=== PATIENT | female | born 1935 | race African-American/Black ===

== ENCOUNTER 2017-05-11 22:05 | Inpatient (IN) | payer MEDICARE, OTHER ==
[~2017-05-11] VITALS: Ht 154.9 cm; Wt 74.8 kg
[2017-05-11 22:04] VITALS: BP 145/57
[2017-05-11] MEDS ORDERED: ADALAT10 MG ORAL (22:09)
[2017-05-11] MEDS ORDERED: ALBUTEROL2.5 MG/3 M INH (22:09)
[2017-05-11] MEDS ORDERED: Albuterol/Ipratropium 3ml neb HHN ONE (22:15)
[2017-05-11] MEDS ORDERED: Solu-MEDROL 125mg Inj IVP ONE (22:15)
--- NOTE | 2017-05-11 22:25 | Emergency Room Report ---
History of Present Illness General Chief Complaint: Dyspnea/Respdistress Source: Patient Present Illness HPI This is an 81-year-old female with history of asthma high blood pressure. She presents with chief complaint of asthma exacerbation shortness. She said his been acting up for the last 2 weeks but worse today. Had fever at home. She went to [facility] this afternoon it was seen and treated there. She received reading treatment and influenza swab. Influenza was negative. She got better and was discharged home. She got home symptom exacerbated again. Her inhaler is not helping. Coughing is nonproductive in nature. Worse with exertion. Worse with lying flat. Has chest tightness. EMS gave her 5 mg albuterol en route. Allergies: Coded Allergies: CODEINE (Verified Allergy, Unknown, 05/11/17) Patient History Past Medical History: see triage record, old chart reviewed, HTN, asthma Past Surgical History: other Pertinent Family History: none Social History: Denies: smoking, alcohol use, drug use Now: No Nursing Documentation-PMH Hx Hypertension: Yes Hx Asthma: Yes Review of Systems Eye: Denies: eye pain, blurred vision ENT: Denies: ear pain, nose congestion, throat swelling Respiratory: Reports: cough, shortness of breath, wheezing Cardiovascular: Denies: chest pain, palpitations Gastrointestinal: Denies: abdominal pain, diarrhea, nausea, vomiting Musculoskeletal: Denies: back pain, joint pain Skin: Denies: rash Neurological: Denies: headache, numbness Endocrine: Denies: increased thirst, increased urine Hematologic/Lymphatic: Denies: easy bruising All Other Systems: negative except mentioned in HPI Physical Exam Vital Signs Date Time Temp Pulse Resp B/P (MAP) Pulse Ox O2 Delivery O2 Flow Rate FiO2 05/11/17 21:57 99.9 124 24 136/68 97 Room Air vital low-grade fever Sp02 EP Interpretation: reviewed, normal General Appearance: well appearing, alert, mild distress Head: normocephalic, atraumatic Eyes: bilateral eye PERRL, bilateral eye EOMI ENT: hearing grossly normal, normal pharynx Neck: full range of motion, supple, no meningismus Respiratory: chest non-tender, respiratory distress - Mild, decreased breath sounds, accessory muscle use, wheezing Cardiovascular #1: regular rate, rhythm, no murmur Gastrointestinal: normal bowel sounds, non tender, no mass, no organomegaly, no bruit, non-distended Musculoskeletal: back normal, normal range of motion Neurologic: alert, oriented x3 Psychiatric: mood/affect normal Skin: warm/dry Medical Decision Making Diagnostic Impression: Primary Impression: Asthma exacerbation Qualified Codes: J45.901 - Unspecified asthma with (acute) exacerbation Additional Impression: Respiratory distress ER Course Patient presents with asthma exacerbation. She may have a viral pneumonia. CBC is normal with elevated monocyte count. She was at [facility] earlier today. Chest x-ray showed atelectasis there. Chest x-ray showed atelectasis here. Influenza was negative there. It is symptom worsen or not better, will admit for further treatment and monitoring. No e/o of ACS, PE, dissection to name a few. I discussed case with Dr. Dinh who is hospitalist for [facility]. He wanted pt to be admitted here. I discussed the case with Dr. Sheth who will admit for Dr. Walls. EKG Diagnostic Results Rate: tachycardiac Rhythm: NSR ST Segments: other - RBBB. NSST changes. Rhythm Strip Diag. Results Rhythm Strip Time: 22:24 EP Interpretation: yes Rate: 115 Rhythm: NSR, no PVC's Other Impression NSST changes. Chest X-Ray Diagnostic Results Chest X-Ray Diagnostic Results : Chest X-Ray Ordered: Yes # of Views/Limited/Complete: 1 View Indication: Shortness of Breath EP Interpretation: Yes Interpretation: no effusion, no pneumothorax, other - CM with atelectasis Impression: Other - CM with atelectasis Electronically Signed by: Josef Schroeder MD Last Vital Signs Date Time Temp Pulse Resp B/P (MAP) Pulse Ox O2 Delivery O2 Flow Rate FiO2 05/11/17 22:04 99.9 123 30 145/57 96 Room Air Status: improved Disposition: ADMITTED INPATIENT Condition: Serious JOSEF SCHROEDER M.D. May 11, 2017 22:25
[2017-05-11] MEDS ORDERED: Acetaminophen 500mg (ES) tab ORAL ONE (22:45)
[2017-05-11 22:59] LABS: BASOPHILS % (AUTO) 1.3 % (0.0-2.0); LYMPHOCYTES % (AUTO) 15.6 % (20.0-45.0); MEAN CORPUSCULAR HGB CONC 31.7 G/DL (32.0-36.0); MEAN CORPUSCULAR VOLUME 88 FL (80-99); MEAN PLATELET VOLUME 11.5 FL (6.5-10.1); MONOCYTES % (AUTO) 13.3 % (1.0-10.0); NEUTROPHILS % (AUTO) 69.7 % (45.0-75.0); PLATELET COUNT 189 K/UL (150-450); RED BLOOD COUNT 4.92 M/UL (4.20-5.40); RED CELL DISTRIBUTION WIDTH 12.8 % (11.6-14.8)
[2017-05-11 23:03] LABS: ANION GAP 9 mmol/L (5-15); CALCIUM 8.3 MG/DL (8.5-10.1); CARBON DIOXIDE 28 MMOL/L (21-32); CHLORIDE 103 MMOL/L (98-107); CREATININE 0.8 MG/DL (0.55-1.30); POTASSIUM 3.4 MMOL/L (3.5-5.1); SODIUM 140 MMOL/L (136-145)
[2017-05-11 23:05] LABS: INR 1.1 (0.9-1.1); PROTHROMBIN TIME 11.1 SEC (9.30-11.50)
[2017-05-11 23:08] VITALS: BP 147/71
[2017-05-11 23:17] LABS: ALANINE AMINOTRANSFERASE 18 U/L (12-78); ALBUMIN/GLOBULIN RATIO 0.8 (1.0-2.7); ASPARTATE AMINO TRANSFERASE 28 U/L (15-37); CKMB 1.3 NG/ML (0.0-3.6); TOTAL PROTEIN 7.6 G/DL (6.4-8.2)
[2017-05-11 23:24] LABS: REFLEX LACTIC ACID YES OR NO YES
[2017-05-12 00:04] LABS: KETONES,URINE 4+ (NEGATIVE); LEUKOCYTE ESTERASE ,URINE 1+ (NEGATIVE); NITRITE,URINE NEGATIVE (NEGATIVE); PH,URINE 6 (4.5-8.0); PROTEIN,URINE 2+ (NEGATIVE); UROBILINOGEN,URINE NORMAL MG/DL (0.0-1.0)
[2017-05-12] MEDS ORDERED: Albuterol/Ipratropium 3ml neb HHN PRN (00:15)
[2017-05-12 00:21] LABS: APPEARANCE,URINE SLIGHTLY CLOUDY
[2017-05-12 00:34] LABS: BACTERIA,URINE FEW /HPF; MUCUS,URINE FEW /LPF (NONE/OCC); SQUAMOUS EPITHELIAL CELL,UR MODERATE /LPF (NONE/OCC)
[2017-05-12 00:48] VITALS: BP 117/50
[2017-05-12] MEDS: Albuterol/Ipratropium 3ml neb HHN SCH ×4 (01:00→19:00)
[2017-05-12] MEDS ORDERED: Albuterol/Ipratropium 3ml neb HHN SCH ×2 (01:00)
[2017-05-12] MEDS: cefTRIAXone 1 GM in D5W 55 ML IVPB SCH (03:45)
[2017-05-12 07:20] LABS: MEAN CORPUSCULAR HEMOGLOBIN 30.3 PG (27.0-31.0); MEAN CORPUSCULAR VOLUME 89 FL (80-99); PLATELET COUNT 181 K/UL (150-450); WHITE BLOOD COUNT 4.1 K/UL (4.8-10.8)
[2017-05-12 07:30] LABS: ANION GAP 7 mmol/L (5-15); CALCIUM 7.6 MG/DL (8.5-10.1); CARBON DIOXIDE 27 MMOL/L (21-32); CHLORIDE 110 MMOL/L (98-107); CREATININE 0.8 MG/DL (0.55-1.30); POTASSIUM 3.2 MMOL/L (3.5-5.1); SODIUM 144 MMOL/L (136-145)
[2017-05-12 07:43] LABS: BAND NEUTROPHILS % (MANUAL) 1 % (0-8); BASOPHILS % (MANUAL) 0 % (0-2); EOSINOPHILS % (MANUAL) 0 % (0-3); LYMPHOCYTES % (MANUAL) 6 % (20-45); NEUTROPHILS % (MANUAL) 92 % (45-75); PLATELET ESTIMATE ADEQUATE; PLATELET MORPHOLOGY NORMAL; TOTAL CELLS COUNTED 100
[2017-05-12 07:49] LABS: ALANINE AMINOTRANSFERASE 23 U/L (12-78); ASPARTATE AMINO TRANSFERASE 36 U/L (15-37); BILIRUBIN,DIRECT 0.1 MG/DL (0.0-0.3); TOTAL PROTEIN 6.7 G/DL (6.4-8.2)
[2017-05-12 08:26] VITALS: BP 122/60
[2017-05-12] MEDS: NIFEdipine 10mg cap ORAL SCH ×2 (09:38→17:30)
[2017-05-12] MEDS: Azithromycin 250mg tab ORAL SCH (09:38)
[2017-05-12] MEDS: Heparin 5000 units/ml inj SUBQ SCH ×2 (09:44→20:45)
--- NOTE | 2017-05-12 10:03 | History & Physical ---
History and Physical History & Physicial CC: SOB HPI: 81 F h/o asthma and HTN p/w 2 weeks of cough, congestions, rhinorrhea, inc wheezing and inc B-agonist use, low grade fevers and chills at home. Went to [facility] ER, had a neg flu and was given HHN's and D/C'd home then came to [facility] via EMS. Here Tm 100.7, ST, VSS otherwise. Started on CTx/Azithro, recieved IV SM and HHN's in ER. Currently she feels improved, less SOB, less wheezing, no F/C , less SOB. PMH: Asthma, HTN PSH: Knee replacement ALL: CODEINE Active Scripts Medications Dose Route/Sig Max Daily Dose Days Date Category Nifedipine* (Nifedipine) 10 Mg Capsule 10 Mg ORAL BID 05/11/17 Reported Albuterol Sulfate Hhn* (Albuterol Sulfate) 2.5 Mg/3 Ml Vial.neb 3 Ml INH Q4H PRN 05/11/17 Reported SHX: No T/E/D FHx: N/C ROS: Neg other than HPI PE: Last Vital Signs Date Time Temp Pulse Resp B/P (MAP) Pulse Ox O2 Delivery O2 Flow Rate FiO2 05/12/17 09:38 77 122/60 05/12/17 08:30 20 98 Room Air 21 05/12/17 08:26 97.3 GEN: NAD, AAOX3 HEENT: NC/AT, OPC c MMM NECK: Supple s LAD or JVD CHEST: Distant, faint EEW COR: Tachy but regular ABD: S/ND/ND c NABS EXT: No C/C, tr ROHITH ECG: ST, RBBB CXR: NAD Laboratory Tests Test 05/11/17 22:15 05/11/17 23:30 05/11/17 23:43 05/12/17 05:41 White Blood Count 7.0 K/UL (4.8-10.8) 4.1 K/UL (4.8-10.8) L Red Blood Count 4.92 M/UL (4.20-5.40) 4.30 M/UL (4.20-5.40) Hemoglobin 13.8 G/DL (12.0-16.0) 13.0 G/DL (12.0-16.0) Hematocrit 43.5 % (37.0-47.0) 38.3 % (37.0-47.0) Mean Corpuscular Volume 88 FL (80-99) 89 FL (80-99) Mean Corpuscular Hemoglobin 28.0 PG (27.0-31.0) 30.3 PG (27.0-31.0) Mean Corpuscular Hemoglobin Concent 31.7 G/DL (32.0-36.0) L 34.0 G/DL (32.0-36.0) Red Cell Distribution Width 12.8 % (11.6-14.8) 13.0 % (11.6-14.8) Platelet Count 189 K/UL (150-450) 181 K/UL (150-450) Mean Platelet Volume 11.5 FL (6.5-10.1) H 11.0 FL (6.5-10.1) H Neutrophils (%) (Auto) 69.7 % (45.0-75.0) % (45.0-75.0) Lymphocytes (%) (Auto) 15.6 % (20.0-45.0) L % (20.0-45.0) Monocytes (%) (Auto) 13.3 % (1.0-10.0) H % (1.0-10.0) Eosinophils (%) (Auto) 0.0 % (0.0-3.0) % (0.0-3.0) Basophils (%) (Auto) 1.3 % (0.0-2.0) % (0.0-2.0) Prothrombin Time 11.1 SEC (9.30-11.50) Prothromb Time International Ratio 1.1 (0.9-1.1) Activated Partial Thromboplast Time 27 SEC (23-33) Sodium Level 140 MMOL/L (136-145) 144 MMOL/L (136-145) Potassium Level 3.4 MMOL/L (3.5-5.1) L 3.2 MMOL/L (3.5-5.1) L Chloride Level 103 MMOL/L (98-107) 110 MMOL/L (98-107) H Carbon Dioxide Level 28 MMOL/L (21-32) 27 MMOL/L (21-32) Anion Gap 9 mmol/L (5-15) 7 mmol/L (5-15) Blood Urea Nitrogen 8 mg/dL (7-18) 9 mg/dL (7-18) Creatinine 0.8 MG/DL (0.55-1.30) 0.8 MG/DL (0.55-1.30) Estimat Glomerular Filtration Rate mL/min (>60) mL/min (>60) Glucose Level 135 MG/DL (74-106) H 168 MG/DL (74-106) H Lactic Acid Level 2.30 mmol/L (0.66-2.22) H 2.40 mmol/L (0.66-2.22) H 1.40 mmol/L (0.66-2.22) Calcium Level 8.3 MG/DL (8.5-10.1) L 7.6 MG/DL (8.5-10.1) L Total Bilirubin 0.4 MG/DL (0.2-1.0) 0.2 MG/DL (0.2-1.0) Aspartate Amino Transf (AST/SGOT) 28 U/L (15-37) 36 U/L (15-37) Alanine Aminotransferase (ALT/SGPT) 18 U/L (12-78) 23 U/L (12-78) Alkaline Phosphatase 133 U/L (46-116) H 126 U/L (46-116) H Total Creatine Kinase 128 U/L (26-308) Creatine Kinase MB 1.3 NG/ML (0.0-3.6) Creatine Kinase MB Relative Index 1.0 Troponin I 0.000 ng/mL (0.000-0.056) Pro-B-Type Natriuretic Peptide 298 pg/mL (0-125) H Total Protein 7.6 G/DL (6.4-8.2) 6.7 G/DL (6.4-8.2) Albumin 3.4 G/DL (3.4-5.0) 2.9 G/DL (3.4-5.0) L Globulin 4.2 g/dL Albumin/Globulin Ratio 0.8 (1.0-2.7) L Urine Color Yellow Urine Appearance Slightly cloudy Urine pH 6 (4.5-8.0) Urine Specific [place] 1.025 (1.005-1.035) Urine Protein 2+ (NEGATIVE) H Urine Glucose (UA) Negative (NEGATIVE) Urine Ketones 4+ (NEGATIVE) H Urine Occult Blood 2+ (NEGATIVE) H Urine Nitrite Negative (NEGATIVE) Urine Bilirubin Negative (NEGATIVE) Urine Urobilinogen Normal MG/DL (0.0-1.0) Urine Leukocyte Esterase 1+ (NEGATIVE) H Urine RBC 5-10 /HPF (0 - 2) H Urine WBC 5-10 /HPF (0 - 2) H Urine Squamous Epithelial Cells Moderate /LPF (NONE/OCC) H Urine Bacteria Few /HPF (NONE) Urine Mucus Few /LPF (NONE/OCC) H Differential Total Cells Counted 100 Neutrophils % (Manual) 92 % (45-75) H Lymphocytes % (Manual) 6 % (20-45) L Monocytes % (Manual) 1 % (1-10) Eosinophils % (Manual) 0 % (0-3) Basophils % (Manual) 0 % (0-2) Band Neutrophils 1 % (0-8) Platelet Estimate Adequate Platelet Morphology Normal Red Blood Cell Morphology Normal Magnesium Level 2.0 MG/DL (1.8-2.4) Direct Bilirubin 0.1 MG/DL (0.0-0.3) ASSESSMENT: 81 F lifelong non-smoker with a h/o asthma and HTN p/w an ASTHMA EXACERBATION in the setting of a likely antecedent URI PROBLEM LIST: -Asthma with acute exacerbation -Likely viral URI -Sinus tachycardia, likely 2/2 B-agonist usage -RBBB -HTN PLAN: -Admit to hospital -Optimize pulmonary hygiene/mobilize as tolerated -RTC and PRN HHN's -SM 60 IV BID and taper -CTx/Azithro (D1), F/U sputum Cx and viral Cx --> will likely D/C CTx tommorrow and complete 5 days of PO Azithro -Start Advair 250/50 BID -Continue Nifedipine -Aspiration precautions -Monitor volumes -DVT Px: Hep SQ -FC Thang Davies MD, FCCP THANG DAVIES M.D. May 12, 2017 10:03
--- NOTE | 2017-05-12 10:08 | Diagnostic Imaging Report ---
Indication: Shortness of breath Technique: XRAY Chest 1v Comparison: None Findings: Heart is mildly enlarged. The thoracic aorta is tortuous with atherosclerotic calcifications in the arch. There is mild central pulmonary vascular congestion. There is no focal airspace consolidation, pleural effusion or pneumothorax. There is elevation of the left hemidiaphragm. Generative changes are noted in the thoracic spine. No acute osseous abnormality seen. Impression: Cardiomegaly and mild pulmonary vascular congestion. No focal consolidation.
[2017-05-12 12:15] VITALS: BP 118/53
[2017-05-12] MEDS ORDERED: Tubing IV Secondary IV ONE (12:40)
[2017-05-12] MEDS ORDERED: NS 275ml ONE (12:40)
--- NOTE | 2017-05-12 14:46 | Cardiology Report ---
APPROVED REPORT EKG Measurement Heart [id number] Sinus tachycardia Right bundle branch block T wave abnormality, consider lateral ischemia Abnormal ECG
[2017-05-12 16:20] VITALS: BP 129/57
[2017-05-12] MEDS: Advair 250/50 Inhaler - 14 dose INH SCH (18:00)
[2017-05-12 19:59] VITALS: BP 124/63
[2017-05-12] MEDS: Solu-MEDROL 125mg Inj IVP SCH (20:38)
[2017-05-13] VITALS: BP 134/68
[2017-05-13] MEDS: Albuterol/Ipratropium 3ml neb HHN SCH ×4 (01:19→19:44)
[2017-05-13] MEDS: cefTRIAXone 1 GM in D5W 55 ML IVPB SCH (01:32)
[2017-05-13 04:00] VITALS: BP 114/55
[2017-05-13 07:37] VITALS: BP 127/68
[2017-05-13] MEDS: Heparin 5000 units/ml inj SUBQ SCH ×3 (07:55→20:31)
[2017-05-13] MEDS: Azithromycin 250mg tab ORAL SCH (07:56)
[2017-05-13] MEDS: Solu-MEDROL 125mg Inj IVP SCH (07:57)
[2017-05-13] MEDS: NIFEdipine 10mg cap ORAL SCH ×2 (07:57→17:09)
[2017-05-13] MEDS: Advair 250/50 Inhaler - 14 dose INH SCH ×2 (09:00→19:47)
[2017-05-13 11:56] LABS: MEAN CORPUSCULAR HEMOGLOBIN 29.1 PG (27.0-31.0); MEAN CORPUSCULAR HGB CONC 32.7 G/DL (32.0-36.0); MEAN CORPUSCULAR VOLUME 89 FL (80-99); MEAN PLATELET VOLUME 11.2 FL (6.5-10.1); PLATELET COUNT 188 K/UL (150-450); RED BLOOD COUNT 4.47 M/UL (4.20-5.40); RED CELL DISTRIBUTION WIDTH 13.4 % (11.6-14.8); WHITE BLOOD COUNT 10.6 K/UL (4.8-10.8)
[2017-05-13 12:00] VITALS: BP 146/78
--- NOTE | 2017-05-13 12:00 | Pulmonology Progress Note ---
Assessment/Plan Problems: (1) Respiratory distress (2) Asthma exacerbation Assessment/Plan ASSESSMENT: 81 F lifelong non-smoker with a h/o asthma and HTN p/w an ASTHMA EXACERBATION in the setting of a likely antecedent URI PROBLEM LIST: -Asthma with acute exacerbation -Likely viral URI -Sinus tachycardia, likely 2/2 B-agonist usage -RBBB -HTN PLAN: -Optimize pulmonary hygiene/mobilize as tolerated -RTC and PRN HHN's -D/C SM, start Pred 60 and taper -D/C CTx, Continue Azithro (D2/5) -Continue Advair 250/50 BID -Aspiration precautions -Monitor volumes -DVT Px: Hep SQ -FC Subjective Allergies: Coded Allergies: CODEINE (Verified Allergy, Unknown, 05/11/17) Subjective AFVSS, stable on RA, less SOB, less wheezing, no cough, no F/C Objective Last 24 Hour Vital Signs Date Time Temp Pulse Resp B/P (MAP) Pulse Ox O2 Delivery O2 Flow Rate FiO2 05/13/17 07:57 89 127/68 05/13/17 07:43 89 20 99 Room Air 21 05/13/17 07:37 98.8 81 20 127/68 94 Room Air 05/13/17 07:32 82 18 94 Room Air 05/13/17 04:00 97.9 71 20 114/55 94 05/13/17 04:00 Room Air 05/13/17 01:37 88 20 98 Room Air 21 05/13/17 01:20 87 18 92 Room Air 05/13/17 00:00 Room Air 05/13/17 00:00 98.1 80 21 134/68 95 05/12/17 20:22 97 20 100 Room Air 21 05/12/17 20:06 84 20 94 Room Air 05/12/17 19:59 97.9 75 20 124/63 96 05/12/17 19:59 Room Air 05/12/17 17:30 96 129/57 05/12/17 16:20 100.0 96 20 129/57 96 05/12/17 16:00 Room Air 05/12/17 13:11 98 22 100 Room Air 21 05/12/17 13:00 89 22 96 Room Air 05/12/17 12:15 98.4 82 20 118/53 97 05/12/17 12:00 Room Air Intake and Output 05/12/17 05/13/17 19:00 07:00 Intake Total 55 ml Balance 55 ml IV Total 55 ml # Voids 3 6 # Bowel Movements 2 General Appearance: WD/WN, no acute distress HEENT: normocephalic, atraumatic, mucous membranes moist Respiratory/Chest: chest wall non-tender, lungs clear, normal breath sounds Cardiovascular: normal peripheral pulses, normal rate, regular rhythm Abdomen: normal bowel sounds, soft, non tender, no organomegaly Extremities: no cyanosis, no clubbing, no edema Microbiology Date/Time Source Procedure Growth Status 05/11/17 22:45 Blood Blood Culture - Preliminary NO GROWTH AFTER 24 HOURS Resulted 05/11/17 22:30 Blood Blood Culture - Preliminary NO GROWTH AFTER 24 HOURS Resulted 05/13/17 04:00 Sputum Induced Gram Stain - Final Complete 05/13/17 04:00 Sputum Induced Sputum Culture - Final CULTURE NOT PERFORMED ... Complete 05/11/17 22:20 Nasal Nares Influenza Types A,B Antigen (WALTER) - Final Complete Laboratory Tests 05/13/17 11:15: White Blood Count [Pending], Red Blood Count [Pending], Hemoglobin [Pending], Hematocrit [Pending], Mean Corpuscular Volume [Pending], Mean Corpuscular Hemoglobin [Pending], Mean Corpuscular Hemoglobin Concent [Pending], Red Cell Distribution Width [Pending], Platelet Count [Pending], Mean Platelet Volume [ Pending], Neutrophils (%) (Auto) [Pending], Lymphocytes (%) (Auto) [Pending], Monocytes (%) (Auto) [Pending], Eosinophils (%) (Auto) [Pending], Basophils (%) (Auto) [Pending], Sodium Level [Pending], Potassium Level [Pending], Chloride Level [Pending], Carbon Dioxide Level [Pending], Blood Urea Nitrogen [Pending], Creatinine [Pending], Estimat Glomerular Filtration Rate [Pending], Glucose Level [Pending], Calcium Level [Pending], Magnesium Level [Pending] Current Medications Medications (Trade) Dose Ordered Sig/Faye Route PRN Reason Start Time Stop Time Status Last Admin Dose Admin Acetaminophen (Tylenol) 650 mg Q6H PRN ORAL Mild Pain/Temp > 100.5 05/12/17 15:45 06/11/17 15:44 Albuterol/ Ipratropium (Albuterol/ Ipratropium) 3 ml Q4HR PRN HHN Shortness of Breath 05/12/17 00:15 05/17/17 00:14 05/12/17 05:11 Albuterol/ Ipratropium (Albuterol/ Ipratropium) 3 ml Q6HRT HHN 05/12/17 01:00 05/17/17 00:59 05/13/17 07:32 Azithromycin (Zithromax) 500 mg DAILY ORAL 05/12/17 09:00 05/19/17 08:59 05/13/17 07:56 Ceftriaxone Sodium 1 gm/ Dextrose 55 ml @ 110 mls/hr Q24H IVPB 05/12/17 02:00 05/19/17 01:59 05/13/17 01:32 Heparin Sodium (Porcine) (Heparin 5000 units/ml) 5,000 units Q12HR SUBQ 05/12/17 09:00 06/11/17 08:59 05/13/17 07:55 Methylprednisolone Sodium Succinate (Solu-MEDROL) 60 mg EVERY 12 HOURS IVP 05/12/17 21:00 06/11/17 20:59 05/13/17 07:57 Nifedipine (Adalat) 10 mg BID ORAL 05/12/17 09:00 06/11/17 08:59 05/13/17 07:57 Potassium Chloride (K-Dur) 60 meq ONCE ONCE ORAL 05/13/17 11:00 05/13/17 11:01 UNV Salmeterol Xinafoate/ Fluticasone (Advair 250/50 Diskus) 1 puffs BID INH 05/12/17 18:00 06/11/17 17:59 05/12/17 18:00 PENNY MADERA M.D. May 13, 2017 12:00
[2017-05-13 12:08] LABS: CALCIUM 8.1 MG/DL (8.5-10.1); CHLORIDE 109 MMOL/L (98-107); CREATININE 0.8 MG/DL (0.55-1.30); MAGNESIUM 2.1 MG/DL (1.8-2.4); POTASSIUM 3.8 MMOL/L (3.5-5.1); SODIUM 142 MMOL/L (136-145)
[2017-05-13 12:37] LABS: CARBON DIOXIDE 28 MMOL/L (21-32)
[2017-05-13 13:40] LABS: BAND NEUTROPHILS % (MANUAL) 0 % (0-8); BASOPHILS % (MANUAL) 0 % (0-2); EOSINOPHILS % (MANUAL) 0 % (0-3); LYMPHOCYTES % (MANUAL) 2 % (20-45); NEUTROPHILS % (MANUAL) 93 % (45-75); PLATELET ESTIMATE ADEQUATE; PLATELET MORPHOLOGY NORMAL; TOTAL CELLS COUNTED 100
[2017-05-13 16:00] VITALS: BP 140/66
[2017-05-13 20:16] VITALS: BP 136/66
--- NOTE | 2017-05-13 23:26 | General Progress Note ---
Assessment/Plan Problem List: (1) Asthma exacerbation ICD Codes: J45.901 - Unspecified asthma with (acute) exacerbation SNOMED: 483708903 Qualifiers: Qualified Codes: J45.901 - Unspecified asthma with (acute) exacerbation (2) Respiratory distress ICD Codes: R06.03 - Acute respiratory distress SNOMED: 992336319 (3) Upper respiratory infection ICD Codes: J06.9 - Acute upper respiratory infection, unspecified SNOMED: 51106868 (4) Right bundle branch block ICD Codes: I45.10 - Unspecified right bundle-branch block SNOMED: 92889914 (5) HTN (hypertension) ICD Codes: I10 - Essential (primary) hypertension SNOMED: 18247414 Status: progressing Assessment/Plan -Optimize pulmonary hygiene/mobilize as tolerated -RTC and PRN HHN's -s/p IV steroid. switched to prednisone 60mg PO qd and taper per pulm -CTx/Azithro (D1), F/U sputum Cx and viral Cx --> CTx dc'ed toda. will complete 5 days of PO Azithro -Start Advair 250/50 BID -Continue Nifedipine -Aspiration precautions -Monitor volumes -DVT Px: Hep SQ -resume home meds - Full code D/w patient, RN, and manager community outreach. Subjective Date patient seen: May 13, 2017 Time patient seen: 10:00 Allergies: Coded Allergies: CODEINE (Verified Allergy, Unknown, 05/11/17) Subjective less wheezing today but still with sob. improving since yesterday transitioned to oral steroids today Objective Last 24 Hour Vital Signs Date Time Temp Pulse Resp B/P (MAP) Pulse Ox O2 Delivery O2 Flow Rate FiO2 05/13/17 22:02 95 05/13/17 20:16 97.7 103 20 136/66 96 Room Air 05/13/17 19:57 83 20 100 Room Air 21 05/13/17 19:47 93 18 96 Room Air 05/13/17 17:09 86 140/66 05/13/17 16:00 98.2 86 20 140/66 97 Room Air 05/13/17 13:18 95 20 100 Room Air 21 05/13/17 13:10 89 18 94 Room Air 05/13/17 12:00 97.2 78 20 146/78 96 Room Air 05/13/17 07:57 89 127/68 05/13/17 07:43 89 20 99 Room Air 21 05/13/17 07:37 98.8 81 20 127/68 94 Room Air 05/13/17 07:32 82 18 94 Room Air 05/13/17 04:00 97.9 71 20 114/55 94 05/13/17 04:00 Room Air 05/13/17 01:37 88 20 98 Room Air 21 05/13/17 01:20 87 18 92 Room Air 05/13/17 00:00 Room Air 05/13/17 00:00 98.1 80 21 134/68 95 Intake and Output 05/12/17 05/13/17 19:00 07:00 Intake Total 55 ml Balance 55 ml IV Total 55 ml # Voids 3 6 # Bowel Movements 2 Laboratory Tests 05/13/17 11:15: White Blood Count 10.6#, Red Blood Count 4.47, Hemoglobin 13.0, Hematocrit 39.8 , Mean Corpuscular Volume 89, Mean Corpuscular Hemoglobin 29.1, Mean Corpuscular Hemoglobin Concent 32.7, Red Cell Distribution Width 13.4, Platelet Count 188, Mean Platelet Volume 11.2H, Neutrophils (%) (Auto) , Lymphocytes (%) (Auto) , Monocytes (%) (Auto) , Eosinophils (%) (Auto) , Basophils (%) (Auto) , Differential Total Cells Counted 100, Neutrophils % (Manual) 93H, Lymphocytes % (Manual) 2L, Monocytes % (Manual) 5, Eosinophils % (Manual) 0, Basophils % ( Manual) 0, Band Neutrophils 0, Platelet Estimate Adequate, Platelet Morphology Normal, Red Blood Cell Morphology Normal, Sodium Level 142, Potassium Level 3.8 , Chloride Level 109H, Carbon Dioxide Level 28, Blood Urea Nitrogen 12, Creatinine 0.8, Estimat Glomerular Filtration Rate , Glucose Level 138H, Calcium Level 8.1L, Magnesium Level 2.1 Height (Feet): 5 Height (Inches): 1.00 Weight (Pounds): 165 General Appearance: alert, mild distress EENT: PERRL/EOMI Neck: non-tender, normal alignment, supple Cardiovascular: normal peripheral pulses, normal rate, regular rhythm Respiratory/Chest: chest wall non-tender, expiratory wheezing, inspiratory wheezing Abdomen: normal bowel sounds, non tender, soft Extremities: non-tender Edema: non-pitting Neurologic: naturalist II-XII grossly normal, no motor/sensory deficits, alert, oriented x 3 Judy Gee N.P. May 13, 2017 23:26
[2017-05-14 00:03] VITALS: BP 143/77
[2017-05-14] MEDS: Albuterol/Ipratropium 3ml neb HHN SCH ×2 (02:00→07:54)
[2017-05-14 03:43] VITALS: BP 150/67
[2017-05-14 08:00] VITALS: BP 127/75
[2017-05-14] MEDS: NIFEdipine 10mg cap ORAL SCH (09:23)
[2017-05-14] MEDS: Azithromycin 250mg tab ORAL SCH (09:23)
[2017-05-14] MEDS: Heparin 5000 units/ml inj SUBQ SCH (09:35)
--- NOTE | 2017-05-14 09:35 | Pulmonology Progress Note ---
Assessment/Plan Assessment/Plan ASSESSMENT acute asthma exacerbation Likely viral URI Sinus tachycardia, likely 2/2 B-agonist usage RBBB HTN PLAN OF CARE MS floor O2 prn to keep sat above 92% pulmonary toilet prn CXR stable switched from IV to po steroids, taper further empiric abx blood cx negative UTD, influenza screen negative, sputum not collected properly on Advair, continue BP stable with current treatment DVT prophayxlis stable for dc from pulmonary standpoint scripts provided for Medrol dose4 pack, Advair, ProAir ( prn) and Zithromax for additional 2 days to complete the course flu and pneumonia vaccines before dc as appropriate case discussed and evaluated by supervising physician Subjective Allergies: Coded Allergies: CODEINE (Verified Allergy, Unknown, 05/11/17) Subjective feeling better afebrile, no leucocytosis no signs of respiratory distress on RA pulse ox stable no wheezing, still with cough, no hemoptysis, white phlegm denies chest pain, SOB, palpitations Objective Last 24 Hour Vital Signs Date Time Temp Pulse Resp B/P (MAP) Pulse Ox O2 Delivery O2 Flow Rate FiO2 05/14/17 08:05 87 20 100 Room Air 21 05/14/17 08:00 97.9 80 20 127/75 98 05/14/17 07:55 86 18 98 Room Air 05/14/17 03:43 99.5 79 20 150/67 97 Room Air 05/14/17 02:08 99 20 100 Room Air 21 05/14/17 02:00 95 18 95 Room Air 05/14/17 00:03 98.2 77 20 143/77 96 Room Air 05/13/17 22:02 95 05/13/17 20:16 97.7 103 20 136/66 96 Room Air 05/13/17 19:57 83 20 100 Room Air 21 05/13/17 19:47 93 18 96 Room Air 05/13/17 17:09 86 140/66 05/13/17 16:00 98.2 86 20 140/66 97 Room Air 05/13/17 13:18 95 20 100 Room Air 21 05/13/17 13:10 89 18 94 Room Air 05/13/17 12:00 97.2 78 20 146/78 96 Room Air Intake and Output 05/13/17 05/14/17 19:00 07:00 Intake Total 720 ml 400 ml Balance 720 ml 400 ml Intake Oral 720 ml 400 ml # Voids 4 3 # Bowel Movements 1 General Appearance: no acute distress HEENT: normocephalic, atraumatic, anicteric, mucous membranes moist Respiratory/Chest: chest wall non-tender, lungs clear - with moderate air intake, no respiratory distress, no accessory muscle use Cardiovascular: normal peripheral pulses, normal rate, no JVD Abdomen: normal bowel sounds, soft, non tender, non distended Genitourinary: normal external genitalia Extremities: no edema, pedal pulses normal Neurologic/Psychiatric: alert, oriented x 3, responsive Microbiology Date/Time Source Procedure Growth Status 05/11/17 22:45 Blood Blood Culture - Preliminary NO GROWTH AFTER 48 HOURS Resulted 05/11/17 22:30 Blood Blood Culture - Preliminary NO GROWTH AFTER 48 HOURS Resulted 05/13/17 04:00 Sputum Induced Gram Stain - Final Complete 05/13/17 04:00 Sputum Induced Sputum Culture - Final CULTURE NOT PERFORMED ... Complete 05/11/17 23:05 Nasal Nares MRSA Culture - Final NO METHICILLIN RESISTANT STAPH AUREUS... Complete 05/11/17 22:20 Nasal Nares Influenza Types A,B Antigen (WALTER) - Final Complete 05/11/17 23:05 Rectum VRE Culture - Final Enterococcus Faecalis - Vre Complete Laboratory Tests 05/13/17 11:15: White Blood Count 10.6#, Red Blood Count 4.47, Hemoglobin 13.0, Hematocrit 39.8 , Mean Corpuscular Volume 89, Mean Corpuscular Hemoglobin 29.1, Mean Corpuscular Hemoglobin Concent 32.7, Red Cell Distribution Width 13.4, Platelet Count 188, Mean Platelet Volume 11.2H, Neutrophils (%) (Auto) , Lymphocytes (%) (Auto) , Monocytes (%) (Auto) , Eosinophils (%) (Auto) , Basophils (%) (Auto) , Differential Total Cells Counted 100, Neutrophils % (Manual) 93H, Lymphocytes % (Manual) 2L, Monocytes % (Manual) 5, Eosinophils % (Manual) 0, Basophils % ( Manual) 0, Band Neutrophils 0, Platelet Estimate Adequate, Platelet Morphology Normal, Red Blood Cell Morphology Normal, Sodium Level 142, Potassium Level 3.8 , Chloride Level 109H, Carbon Dioxide Level 28, Blood Urea Nitrogen 12, Creatinine 0.8, Estimat Glomerular Filtration Rate , Glucose Level 138H, Calcium Level 8.1L, Magnesium Level 2.1 Current Medications Medications (Trade) Dose Ordered Sig/Faye Route PRN Reason Start Time Stop Time Status Last Admin Dose Admin Acetaminophen (Tylenol) 650 mg Q6H PRN ORAL Mild Pain/Temp > 100.5 05/12/17 15:45 06/11/17 15:44 Albuterol/ Ipratropium (Albuterol/ Ipratropium) 3 ml Q4HR PRN HHN Shortness of Breath 05/12/17 00:15 05/17/17 00:14 05/12/17 05:11 Albuterol/ Ipratropium (Albuterol/ Ipratropium) 3 ml Q6HRT HHN 05/12/17 01:00 05/17/17 00:59 05/14/17 07:54 Azithromycin (Zithromax) 500 mg DAILY ORAL 05/12/17 09:00 05/19/17 08:59 05/13/17 07:56 Heparin Sodium (Porcine) (Heparin 5000 units/ml) 5,000 units Q12HR SUBQ 05/12/17 09:00 06/11/17 08:59 05/13/17 20:31 Nifedipine (Adalat) 10 mg BID ORAL 05/12/17 09:00 06/11/17 08:59 05/13/17 17:09 Prednisone (predniSONE) 60 mg DAILY ORAL 05/14/17 09:00 06/13/17 08:59 Salmeterol Xinafoate/ Fluticasone (Advair 250/50 Diskus) 1 puffs BID INH 05/12/17 18:00 06/11/17 17:59 05/13/17 19:47 Maria Isabel Artis NP ([facility]) May 14, 2017 09:35
[2017-05-14] MEDS ORDERED: ZITHROMAX250 MG ORAL (10:20)
[2017-05-14] MEDS ORDERED: MEDROL4 MG ORAL (10:20)
[2017-05-14] MEDS ORDERED: ADVAIR 250/501 PUFFS INH (10:20)
[2017-05-14 12:00] VITALS: BP 148/76
--- NOTE | 2017-05-14 12:28 | Discharge Summary ---
Discharge Summary Hospital Course Date of Admission May 11, 2017 at 23:20 Date of Discharge 05/14/17 Admitting Diagnosis asthma HPI Irene Eastman is a 81 year old female who was admitted on May 11, 2017 at 23:20 for Asthma Consultations Pulmonology, Dr. Swanson [facility] Course 81 y/o with a PMH of asthma, HTN, and RBBB presents for increasing sob. Patient was noted to have acute asthma exacerbation that was likely preceded by a URI. Pulmonology was consulted and patient was started on IV antibiotics and IV solumedrol. Patient stabilized further and was switched over to oral steroids. Patient was hemodynamically stable and was given prescriptions for a steroid dose pack, another 2 days of azithromycin, and asthma medications. Discharge Medications New Medications: Azithromycin* (Zithromax*) 250 Mg Tablet 250 MG ORAL DAILY, #2 TAB Methylprednisolone* (Medrol*) 4 Mg Tablet 4 MG ORAL DAILY, #10 TAB 0 Refills Fluticasone/Salmeterol (Advair 250-50 Diskus) 1 Each Blst.w.dev 1 PUFFS INH BID, #1 PACK Continued Medications: Albuterol Sulfate* (Albuterol Sulfate Hhn*) 2.5 Mg/3 Ml Vial.neb 3 ML INH Q4H PRN for Shortness of Breath, EA Nifedipine (Nifedipine*) 10 Mg Capsule 10 MG ORAL BID, CAP Discharge Condition Upon Discharge: stable Discharge Disposition Patient was discharged to home with home health Discharge Diagnoses: (1) Respiratory distress (2) Asthma exacerbation (3) Upper respiratory infection (4) Right bundle branch block (5) HTN (hypertension) Judy Gee N.P. May 14, 2017 12:28
== END 2017-05-14 13:12 | disposition home health service (06) | DRG 203 ==
LOC: EDBD 22:05 → EMR 22:32 → 4E 23:20 → EDBEDREQ 23:44 → 4E 05-12 01:58
DX: J45.901 Unspecified asthma with (acute) exacerbation (principal); R06.03 Acute respiratory distress; I10 Essential (primary) hypertension; I45.10 Unspecified right bundle-branch block; J06.9 Acute upper respiratory infection, unspecified; R00.0 Tachycardia, unspecified
CPT/HCPCS: 36415; 71010; 80048; 80053; 80076; 81003; 82550; 82553; 83605; 83735; 83880; 84484; 85007; 85025; 85610; 85730; 86710; 87040; 87070; 87081; 87205; 93005; 94640; 94664; 99285; J7620; J8499

== ENCOUNTER 2017-08-05 13:37 | Inpatient (IN) | payer OTHER, MEDICAID ==
[~2017-08-05] VITALS: Ht 154.9 cm; Wt 69.9 kg
[~2017-08-05 13:37] MED LIST: ADALAT10 MG ORAL; ADVAIR 250/501 PUFFS INH; ALBUTEROL2.5 MG/3 M INH; MEDROL4 MG ORAL; ZITHROMAX250 MG ORAL
[2017-08-05 13:40] VITALS: BP 131/68
[2017-08-05] MEDS ORDERED: Solu-MEDROL 125mg Inj IVP ONE (14:00)
[2017-08-05] MEDS ORDERED: Azithromycin 500 MG in NS 275 ML IV ONE (14:00)
--- NOTE | 2017-08-05 14:07 | Emergency Room Report ---
History of Present Illness General Chief Complaint: Dyspnea/Respdistress Source: Patient, EMS Present Illness HPI 81-year-old female brought in by EMS from group home for shortness of breath and "runny nose" since this morning. Patient also endorses feeling "chills" recently, has been using nebulizer at group home without much improvement. Has known history of asthma. Previously admitted in April for similar. Otherwise denies chest pain, cough, abdominal pain, urine or complaints. Allergies: Coded Allergies: CODEINE (Verified Allergy, Unknown, 05/11/17) Patient History Past Medical History: asthma Past Surgical History: none Pertinent Family History: none Social History: Denies: smoking, alcohol use, drug use Now: No Immunizations: UTD Reviewed Nursing Documentation: PMH: Agreed, PSxH: Agreed Nursing Documentation-PMH Hx Cardiac Problems: Yes Hx Hypertension: Yes Hx Asthma: Yes Hx Cancer: No Hx Gastrointestinal Problems: No Hx Neurological Problems: No Review of Systems All Other Systems: negative except mentioned in HPI Physical Exam Vital Signs Date Time Temp Pulse Resp B/P (MAP) Pulse Ox O2 Delivery O2 Flow Rate FiO2 08/05/17 13:30 106 20 206/110 99 Venturi Mask Sp02 EP Interpretation: reviewed, normal General Appearance: normal inspection, well appearing, no apparent distress, alert, GCS 15, non-toxic, other - Speaking full sentences, no acute distress Head: normocephalic, atraumatic Eyes: bilateral eye PERRL, bilateral eye EOMI ENT: normal ENT inspection, hearing grossly normal, normal pharynx, no angioedema, normal voice, TMs + canals normal, uvula midline, moist mucus membranes Neck: normal inspection, full range of motion, supple, thyroid normal, no meningismus, no bony tend Respiratory: normal inspection, lungs clear, no rhonchi, no respiratory distress, no retraction, no accessory muscle use, no wheezing, decreased breath sounds, speaking full sentences Cardiovascular #1: regular rate, rhythm, no edema, no JVD, normal capillary refill Gastrointestinal: normal inspection, normal bowel sounds, non tender, soft, no mass, no peritonitis, non-distended, no guarding, no hernia, no pulsatile mass Genitourinary: no CVA tenderness Musculoskeletal: normal inspection, back normal, normal range of motion, no calf tenderness, pelvis stable, Jania's Sign negative Neurologic: normal inspection, alert, oriented x3, responsive, cutter wet machine III-XII nml as tested, motor strength/tone normal, cerebellar normal, normal gait, speech normal Psychiatric: normal inspection, judgement/insight normal, mood/affect normal, no suicidal/homicidal ideation, no delusions Skin: normal inspection, normal color, no rash Lymphatic: normal inspection, no adenopathy Medical Decision Making Diagnostic Impression: Primary Impression: Asthma exacerbation Qualified Codes: J45.21 - Mild intermittent asthma with (acute) exacerbation Additional Impression: Elevated troponin ER Course 81-year-old female with mild asthma exacerbation Arty improved by time of arrival ER No accessory muscle use, retractions, she is speaking full sentences She improved after additional DuoNeb nebs, steroids, IV azithromycin Afebrile,mild leuks, no signs of pneumonia on x-ray on ED review despite elevated leukocytosis, no fever, not septic appearing, no signs of pneumonia on x-ray, will not give empiric antibiotics at this time or treatment for sepsis Given dose of azithromycin IV as recommended for COPD, asthma exacerbations Elevated troponin 0.123 - EKG shows RBBB, which she had on April EKG. No signs of acute ischemia on EKG today - patient not complaining of chest pain or shortness of breath Asthma exacerbation much more likely cause of symptoms However given her age, we'll give aspirin for possible ACS Needs second troponin Tele admit Dr Guerra/Elise endorsed at 556pm EKG Diagnostic Results Rate: normal Rhythm: NSR ST Segments: other - incomplete RBBB, prolonged QTc ASA given to the pt in ED: No Rhythm Strip Diag. Results EP Interpretation: yes Rate: 75 Rhythm: NSR, no PVC's, no ectopy Chest X-Ray Diagnostic Results Chest X-Ray Diagnostic Results : Chest X-Ray Ordered: Yes # of Views/Limited/Complete: 1 View Indication: Shortness of Breath EP Interpretation: Yes Interpretation: no consolidation, no effusion, no pneumothorax, no acute cardiopulmonary disease Impression: No acute disease Electronically Signed by: Dr Devora Calzada MD Last Vital Signs Date Time Temp Pulse Resp B/P (MAP) Pulse Ox O2 Delivery O2 Flow Rate FiO2 08/05/17 13:30 106 20 206/110 99 Venturi Mask Status: improved Disposition: ADMITTED INPATIENT Condition: Serious DEVORA CALZADA M.D. Aug 05, 2017 14:07
[2017-08-05] MEDS: Ipratropium 0.02% Inh Soln 2.5ml UD HHN SCH ×3 (14:12→14:41)
[2017-08-05] MEDS: Albuterol ud Inhalation HHN SCH ×3 (14:12→14:41)
[2017-08-05] MEDS ORDERED: ASPIR 8181 MG ORAL (14:25)
[2017-08-05] MEDS ORDERED: Azithromycin 500mg Inj IV ONE (14:31)
[2017-08-05 14:44] LABS: BASOPHILS % (AUTO) 0.6 % (0.0-2.0); EOSINOPHILS % (AUTO) 1.3 % (0.0-3.0); HEMATOCRIT 44.6 % (37.0-47.0); HEMOGLOBIN 14.8 G/DL (12.0-16.0); LYMPHOCYTES % (AUTO) 14.8 % (20.0-45.0); MEAN CORPUSCULAR VOLUME 90 FL (80-99); MONOCYTES % (AUTO) 8.5 % (1.0-10.0); NEUTROPHILS % (AUTO) 74.9 % (45.0-75.0); PLATELET COUNT 227 K/UL (150-450); RED BLOOD COUNT 4.96 M/UL (4.20-5.40); RED CELL DISTRIBUTION WIDTH 13.4 % (11.6-14.8)
[2017-08-05 14:57] LABS: ANION GAP 9 mmol/L (5-15); BLOOD UREA NITROGEN 10 mg/dL (7-18); CALCIUM 9.1 MG/DL (8.5-10.1); CARBON DIOXIDE 31 MMOL/L (21-32); CHLORIDE 104 MMOL/L (98-107); CREATININE 0.8 MG/DL (0.55-1.30); POTASSIUM 3.5 MMOL/L (3.5-5.1); SODIUM 143 MMOL/L (136-145)
[2017-08-05 15:18] LABS: ALANINE AMINOTRANSFERASE 28 U/L (12-78); ALBUMIN 3.3 G/DL (3.4-5.0); ALBUMIN/GLOBULIN RATIO 0.8 (1.0-2.7); ALKALINE PHOSPHATASE 148 U/L (46-116); ASPARTATE AMINO TRANSFERASE 39 U/L (15-37); BILIRUBIN,TOTAL 0.4 MG/DL (0.2-1.0); CKMB 1.3 NG/ML (0.0-3.6); CREATINE KINASE 65 U/L (26-308)
[2017-08-05 15:56] VITALS: BP 121/63
[2017-08-05 18:00] VITALS: BP 115/45
[2017-08-05] MEDS ORDERED: Acetaminophen 650 MG SUPP RECTAL PRN ×2 (18:30)
[2017-08-05] MEDS ORDERED: Miralax 17gm pkt ORAL PRN (18:30)
[2017-08-05] MEDS ORDERED: Albuterol/Ipratropium 3ml neb HHN PRN (18:30)
[2017-08-05] MEDS: Albuterol/Ipratropium 3ml neb HHN SCH (19:00)
[2017-08-05 20:21] VITALS: BP 120/47
[2017-08-05 20:55] VITALS: BP 137/72
[2017-08-05] MEDS: Docusate 100mg cap ORAL SCH (21:00)
[2017-08-05] MEDS ORDERED: methylPREDNISolone Sod Succ 500 MG in NS 110 ML IVPB ONE (21:00)
[2017-08-05] MEDS: Theophylline ER 100mg ORAL SCH (21:23)
[2017-08-05] MEDS: Heparin 5000 units/ml inj SUBQ SCH (21:25)
[2017-08-05] MEDS ORDERED: NIFEDIPINE ER30 MG ORAL (22:38)
[2017-08-06] VITALS: BP 118/56
[2017-08-06] MEDS: Albuterol/Ipratropium 3ml neb HHN SCH ×4 (01:32→19:24)
[2017-08-06 04:00] VITALS: BP 115/61
[2017-08-06] MEDS: Solu-MEDROL 125mg Inj IV SCH ×4 (06:21→23:45)
[2017-08-06 08:00] VITALS: BP 130/62
[2017-08-06 08:06] LABS: HEMATOCRIT 43.8 % (37.0-47.0); MEAN CORPUSCULAR VOLUME 89 FL (80-99); PLATELET COUNT 238 K/UL (150-450); RED BLOOD COUNT 4.95 M/UL (4.20-5.40); RED CELL DISTRIBUTION WIDTH 13.2 % (11.6-14.8); WHITE BLOOD COUNT 11.6 K/UL (4.8-10.8)
[2017-08-06] MEDS: Aspirin Baby 81mg ORAL SCH (08:10)
[2017-08-06] MEDS: NIFEdipine 10mg cap ORAL SCH ×2 (08:11→20:32)
[2017-08-06] MEDS: Theophylline ER 100mg ORAL SCH ×2 (08:11→20:33)
[2017-08-06] MEDS: Azithromycin 250mg tab ORAL SCH (08:11)
[2017-08-06] MEDS: Heparin 5000 units/ml inj SUBQ SCH ×2 (08:12→20:33)
[2017-08-06] MEDS: Docusate 100mg cap ORAL SCH ×2 (08:12→20:35)
[2017-08-06 08:34] LABS: ALANINE AMINOTRANSFERASE 24 U/L (12-78); ALBUMIN 3.3 G/DL (3.4-5.0); ALBUMIN/GLOBULIN RATIO 0.8 (1.0-2.7); ALKALINE PHOSPHATASE 135 U/L (46-116); ANION GAP 9 mmol/L (5-15); ASPARTATE AMINO TRANSFERASE 27 U/L (15-37); BILIRUBIN,TOTAL 0.5 MG/DL (0.2-1.0); BLOOD UREA NITROGEN 10 mg/dL (7-18); CALCIUM 9.6 MG/DL (8.5-10.1); CARBON DIOXIDE 29 MMOL/L (21-32); CHLORIDE 106 MMOL/L (98-107); CREATININE 0.9 MG/DL (0.55-1.30); POTASSIUM 3.7 MMOL/L (3.5-5.1); SODIUM 144 MMOL/L (136-145)
[2017-08-06] MEDS ORDERED: Advair 250/50 Inhaler - 14 dose INH SCH (09:00)
--- NOTE | 2017-08-06 10:02 | Diagnostic Imaging Report ---
Indication: Shortness of breath Technique: One view of the chest Comparison: 05/11/2017 Findings: No acute infiltrates, effusions, or congestion. Tortuous calcified aorta. Upper limits normal heart size. Upper mediastinum unremarkable. Impression: No acute process.
[2017-08-06 12:00] VITALS: BP 103/50
[2017-08-06] MEDS ORDERED: Pneumococcal Vaccine 25mcg/0.5ml IM ONE (12:00)
--- NOTE | 2017-08-06 12:20 | Diagnostic Imaging Report ---
Indication: Dyspnea, cough Technique: One view of the chest Comparison: 08/05/2017 Findings: There is some atelectasis in the left perihilar region. There may some left basilar atelectasis as well. Lungs and pleural spaces are otherwise clear. The heart is borderline enlarged. Impression: Left basilar and perihilar atelectasis No acute process otherwise
--- NOTE | 2017-08-06 13:02 | History and Physical ---
History of Present Illness General Date patient seen: Aug 06, 2017 Time patient seen: 13:02 Reason for Hospitalization: Dyspnea/Respdistress Present Illness HPI 82y/o female with pmh of asthma, HTN who presenst with SOB. Pt c/o shortness of breath, cough, runny nose, and chills. She has been using inhaler at home without much improvement. She was previously admitted in April for similar complaints. Denies fevers, chest pain, abd pain, n/v, d/c, dysuria, dizziness. In field pt w/ O2 sat 69% on room air. She was given duonebs w/ improvement. In ED, pt was given IV steroids, duonebs, azithro IV. Trop elevated at 0.12. EKG w / RBBB similar to prior EKG. ASA given. Allergies: Coded Allergies: CODEINE (Verified Allergy, Unknown, 05/11/17) Medication History Scheduled Aspirin* (Aspir 81*), 81 ORAL DAILY, (Reported) Fluticasone/Salmeterol (Advair 250-50 Diskus), 1 PUFFS INH BID Nifedipine Er* (Nifedipine Er*), 30 MG ORAL DAILY, (Reported) Scheduled PRN Albuterol Sulfate* (Albuterol Sulfate Hhn*), 3 ML INH Q4H PRN for Shortness of Breath, (Reported) Discontinued Medications Azithromycin* (Zithromax*), 250 MG ORAL DAILY Discontinued Reason: Therapy completed Methylprednisolone* (Medrol*), 4 MG ORAL DAILY Discontinued Reason: MD discontinued med Nifedipine (Nifedipine*), 30 MG ORAL BID, (Reported) Discontinued Reason: Medication dose changed Patient History History Provided By: Patient, Medical Record Healthcare decision maker Resuscitation status Full Code Advanced Directive on File Past Medical/Surgical History Past Medical/Surgical History: (1) Asthma (2) HTN (hypertension) Social History Social History: (1) lives at home Review of Systems Constitutional: Reports: chills Eye: Reports: no symptoms ENT: Reports: nose congestion Respiratory: Reports: cough, shortness of breath Cardiovascular: Reports: no symptoms Gastrointestinal: Reports: no symptoms Genitourinary: Reports: no symptoms Musculoskeletal: Reports: no symptoms Skin: Reports: no symptoms Psychiatric: Reports: no symptoms Neurological: Reports: no symptoms Endocrine: Reports: no symptoms Hematologic/Lymphatic: Reports: no symptoms Physical Exam Physical Exam Narrative General: alert, cooperative, no distress, appears stated age Head: normocephalic, without obvious abnormality, atraumatic Eyes: conjunctivae/corneas clear. PERRL, EOM's intact Throat: lips, mucosa, and tongue normal. MMM Neck: supple, symmetrical, trachea midline, and no JVD Lungs: +wheezing b/l Heart: regular rate and rhythm, S1, S2 normal, no murmur, click, rub or gallop Abdomen: soft, non-tender, non-distended, bowel sounds normal; no masses or organomegaly Extremities: extremities normal, atraumatic, no cyanosis or edema Pulses: 2+ and symmetric Skin: skin color, texture, turgor normal; no rashes or lesions Neurologic: grossly normal, no focal deficits Last 24 Hour Vital Signs Date Time Temp Pulse Resp B/P (MAP) Pulse Ox O2 Delivery O2 Flow Rate FiO2 08/06/17 12:23 85 16 98 Room Air 21 08/06/17 12:15 87 16 98 Room Air 21 08/06/17 12:15 21 08/06/17 08:11 103 130/62 08/06/17 08:00 97.2 103 19 130/62 97 Nasal Cannula 2.0 97.2 08/06/17 08:00 103 08/06/17 07:30 88 18 100 Nasal Cannula 2.0 28 08/06/17 07:21 89 18 100 Nasal Cannula 2.0 28 08/06/17 07:21 28 08/06/17 04:00 96.7 87 19 115/61 96 Nasal Cannula 2.0 96.7 08/06/17 04:00 92 08/06/17 01:36 98 20 99 Nasal Cannula 2.0 28 08/06/17 01:32 28 08/06/17 01:30 97 20 97 Nasal Cannula 2.0 28 08/06/17 00:00 98 08/06/17 00:00 97.1 94 20 118/56 96 Nasal Cannula 2.0 97.1 08/05/17 21:00 102 08/05/17 20:55 97.7 103 19 137/72 100 Nasal Cannula 2.0 97.7 08/05/17 20:49 98.3 100 24 120/47 97 Room Air 2.0 98.3 08/05/17 20:21 100 24 120/47 97 Room Air 08/05/17 18:00 98.3 102 16 115/45 96 Room Air 98.3 08/05/17 15:56 98.5 95 20 121/63 96 Nasal Cannula 98.5 08/05/17 14:44 94 20 100 Nasal Cannula 5.0 08/05/17 14:42 94 20 100 Simple Mask 5.0 08/05/17 14:27 94 20 100 Nasal Cannula 5.0 08/05/17 14:27 94 20 100 Simple Mask 5.0 08/05/17 14:12 91 16 100 Simple Mask 5.0 08/05/17 14:10 91 16 Simple Mask 5.0 08/05/17 13:40 98.9 104 24 131/68 100 Venturi Mask 98.9 08/05/17 13:40 104 24 Room Air 08/05/17 13:30 106 20 206/110 99 Venturi Mask Intake and Output 08/05/17 08/06/17 19:00 07:00 Intake Total 275 ml 110 ml Balance 275 ml 110 ml Intake Oral 0 ml IV Total 275 ml 110 ml # Voids 1 3 # Bowel Movements 1 Laboratory Tests Test 08/05/17 14:25 08/05/17 15:30 08/06/17 07:20 White Blood Count 13.0 K/UL (4.8-10.8) H 11.6 K/UL (4.8-10.8) H Red Blood Count 4.96 M/UL (4.20-5.40) 4.95 M/UL (4.20-5.40) Hemoglobin 14.8 G/DL (12.0-16.0) 15.0 G/DL (12.0-16.0) Hematocrit 44.6 % (37.0-47.0) 43.8 % (37.0-47.0) Mean Corpuscular Volume 90 FL (80-99) 89 FL (80-99) Mean Corpuscular Hemoglobin 29.8 PG (27.0-31.0) 30.4 PG (27.0-31.0) Mean Corpuscular Hemoglobin Concent 33.1 G/DL (32.0-36.0) 34.3 G/DL (32.0-36.0) Red Cell Distribution Width 13.4 % (11.6-14.8) 13.2 % (11.6-14.8) Platelet Count 227 K/UL (150-450) 238 K/UL (150-450) Mean Platelet Volume 10.0 FL (6.5-10.1) 10.3 FL (6.5-10.1) H Neutrophils (%) (Auto) 74.9 % (45.0-75.0) % (45.0-75.0) Lymphocytes (%) (Auto) 14.8 % (20.0-45.0) L % (20.0-45.0) Monocytes (%) (Auto) 8.5 % (1.0-10.0) % (1.0-10.0) Eosinophils (%) (Auto) 1.3 % (0.0-3.0) % (0.0-3.0) Basophils (%) (Auto) 0.6 % (0.0-2.0) % (0.0-2.0) Sodium Level 143 MMOL/L (136-145) 144 MMOL/L (136-145) Potassium Level 3.5 MMOL/L (3.5-5.1) 3.7 MMOL/L (3.5-5.1) Chloride Level 104 MMOL/L (98-107) 106 MMOL/L (98-107) Carbon Dioxide Level 31 MMOL/L (21-32) 29 MMOL/L (21-32) Anion Gap 9 mmol/L (5-15) 9 mmol/L (5-15) Blood Urea Nitrogen 10 mg/dL (7-18) 10 mg/dL (7-18) Creatinine 0.8 MG/DL (0.55-1.30) 0.9 MG/DL (0.55-1.30) Estimat Glomerular Filtration Rate mL/min (>60) mL/min (>60) Glucose Level 133 MG/DL (74-106) H 155 MG/DL (74-106) H Calcium Level 9.1 MG/DL (8.5-10.1) 9.6 MG/DL (8.5-10.1) Total Bilirubin 0.4 MG/DL (0.2-1.0) 0.5 MG/DL (0.2-1.0) Aspartate Amino Transf (AST/SGOT) 39 U/L (15-37) H 27 U/L (15-37) Alanine Aminotransferase (ALT/SGPT) 28 U/L (12-78) 24 U/L (12-78) Alkaline Phosphatase 148 U/L (46-116) H 135 U/L (46-116) H Total Creatine Kinase 65 U/L (26-308) Creatine Kinase MB 1.3 NG/ML (0.0-3.6) Creatine Kinase MB Relative Index 2.0 Troponin I 0.123 ng/mL (0.000-0.056) 0.500 ng/mL (0.000-0.056) Total Protein 7.4 G/DL (6.4-8.2) 7.3 G/DL (6.4-8.2) Albumin 3.3 G/DL (3.4-5.0) L 3.3 G/DL (3.4-5.0) L Globulin 4.1 g/dL 4.0 g/dL Albumin/Globulin Ratio 0.8 (1.0-2.7) L 0.8 (1.0-2.7) L Arterial Blood pH 7.380 (7.350-7.450) Arterial Blood Partial Pressure CO2 47.4 mmHg (35.0-45.0) H Arterial Blood Partial Pressure O2 73.8 mmHg (75.0-100.0) L Arterial Blood HCO3 27.8 mmol/L (22.0-26.0) H Arterial Blood Oxygen Saturation 94.2 % (92.0-98.0) Arterial Blood Base Excess 2.0 Javier Test Positive Differential Total Cells Counted 100 Neutrophils % (Manual) 92 % (45-75) H Lymphocytes % (Manual) 7 % (20-45) L Monocytes % (Manual) 1 % (1-10) Eosinophils % (Manual) 0 % (0-3) Basophils % (Manual) 0 % (0-2) Band Neutrophils 0 % (0-8) Platelet Estimate Adequate Platelet Morphology Normal Red Blood Cell Morphology Normal Pro-B-Type Natriuretic Peptide 1690 pg/mL (0-125) H Height (Feet): 5 Height (Inches): 1.00 Weight (Pounds): 154 Medications Current Medications Medications (Trade) Dose Ordered Sig/Faye Route PRN Reason Start Time Stop Time Status Last Admin Dose Admin Acetaminophen (Tylenol) 650 mg Q4H PRN ORAL Mild Pain (Pain Scale 1-3) 08/05/17 18:30 09/04/17 18:29 Acetaminophen (Tylenol) 650 mg Q4H PRN ORAL T>100.5 08/05/17 18:30 09/04/17 18:29 Acetaminophen (Tylenol) 650 mg Q4H PRN RECTAL Mild Pain (Pain Scale 1-3) 08/05/17 18:30 09/04/17 18:29 Acetaminophen (Tylenol) 650 mg Q4H PRN RECTAL T>100.5 08/05/17 18:30 09/04/17 18:29 Albuterol/ Ipratropium (Albuterol/ Ipratropium) 3 ml Q4H PRN HHN sob, wheezing 08/05/17 18:30 08/10/17 18:29 Albuterol/ Ipratropium (Albuterol/ Ipratropium) 3 ml Q6HRT HHN 08/05/17 19:00 08/10/17 18:59 08/06/17 12:15 Aspirin (ASA) 81 mg DAILY ORAL 08/06/17 09:00 09/05/17 08:59 08/06/17 08:10 Azithromycin (Zithromax) 500 mg DAILY ORAL 08/06/17 09:00 08/13/17 08:59 08/06/17 08:11 Bisacodyl (Dulcolax) 10 mg DAILYPRN PRN RECTAL Constipation 08/05/17 18:30 09/04/17 18:29 Dextrose (Dextrose 50%) STAT PRN IV Hypoglycemia 08/05/17 18:30 09/04/17 18:29 Docusate Sodium (Colace) 100 mg EVERY 12 HOURS ORAL 08/05/17 21:00 09/04/17 20:59 Heparin Sodium (Porcine) (Heparin 5000 units/ml) 5,000 units EVERY 12 HOURS SUBQ 08/05/17 21:00 09/04/17 20:59 08/06/17 08:12 Methylprednisolone Sodium Succinate (Solu-MEDROL) 60 mg EVERY 6 HOURS IV 08/06/17 06:00 09/05/17 05:59 08/06/17 12:05 Nifedipine (Adalat) 30 mg Q12HR ORAL 08/06/17 09:00 09/05/17 08:59 08/06/17 08:11 Ondansetron HCl (Zofran) 4 mg Q6H PRN IVP Nausea & Vomiting 08/05/17 18:30 09/04/17 18:29 Polyethylene Glycol (Miralax) 17 gm DAILYPRN PRN ORAL Constipation 08/05/17 18:30 09/04/17 18:29 Salmeterol Xinafoate/ Fluticasone (Advair 250/50 Diskus) 1 puffs BID INH 08/06/17 09:00 09/05/17 08:59 Theophylline (Lamine-Dur) 100 mg EVERY 12 HOURS ORAL 08/05/17 21:00 09/04/17 20:59 08/06/17 08:11 Assessment/Plan Problem List: (1) Acute respiratory failure with hypoxia ICD Codes: J96.01 - Acute respiratory failure with hypoxia SNOMED: 90324829, 227662528 (2) Asthma exacerbation ICD Codes: J45.901 - Unspecified asthma with (acute) exacerbation SNOMED: 842873823 Qualifiers: Qualified Codes: J45.21 - Mild intermittent asthma with (acute) exacerbation (3) Upper respiratory infection ICD Codes: J06.9 - Acute upper respiratory infection, unspecified SNOMED: 52333921 (4) Elevated troponin Assessment & Plan: possible demand ischemia vs NSTEMI ICD Codes: R74.8 - Abnormal levels of other serum enzymes SNOMED: 212952998, 313894127, 231360930 (5) HTN (hypertension) ICD Codes: I10 - Essential (primary) hypertension SNOMED: 75594261 (6) Right bundle branch block ICD Codes: I45.10 - Unspecified right bundle-branch block SNOMED: 85903066 Status: stable Assessment/Plan Admit to tele Pulm and cardiology consulted s/p solumedrol 125mg IV in ED cont IV steroids per pulm and taper as tolerated Duonebs ATC and PRN Azithromycin 500mg daily Cont O2 and wean as tolerated Trend trop/EKG Check TTE Pain control, bowel regimen Supportive care DVT ppx: SCDs, HSQ FULL CODE D/w pt, RN, pulm regarding mgmt and dispo Elise Camarena M.D. Aug 06, 2017 13:02
--- NOTE | 2017-08-06 13:16 | Consultation ---
History of Present Illness General Date patient seen: Aug 06, 2017 Chief Complaint: Dyspnea/Respdistress Reason for Consultation: dyspnea Present Illness HPI 82 year old female with history of asthma brought in by paramedics with CC of shortness of breath and "runny nose" "chills" . Sh has been using nebulizer at home without much improvement. She was previously admitted in April for similar complains. Her troponin was positive therefore she is admitted to Telemetry. let me see her Allergies: Coded Allergies: CODEINE (Verified Allergy, Unknown, 05/11/17) Medication History Scheduled Aspirin* (Aspir 81*), 81 ORAL DAILY, (Reported) Fluticasone/Salmeterol (Advair 250-50 Diskus), 1 PUFFS INH BID Nifedipine Er* (Nifedipine Er*), 30 MG ORAL DAILY, (Reported) Scheduled PRN Albuterol Sulfate* (Albuterol Sulfate Hhn*), 3 ML INH Q4H PRN for Shortness of Breath, (Reported) Discontinued Medications Azithromycin* (Zithromax*), 250 MG ORAL DAILY Discontinued Reason: Therapy completed Methylprednisolone* (Medrol*), 4 MG ORAL DAILY Discontinued Reason: MD discontinued med Nifedipine (Nifedipine*), 30 MG ORAL BID, (Reported) Discontinued Reason: Medication dose changed Patient History Healthcare decision maker Resuscitation status Full Code Advanced Directive on File Past Medical/Surgical History Past Medical/Surgical History: (1) History of asthma (2) HTN (hypertension) Review of Systems Respiratory: Reports: shortness of breath, wheezing Physical Exam General Appearance: WD/WN, no apparent distress Lines, tubes and drains: peripheral HEENT: normocephalic, atraumatic Neck: non-tender, normal alignment Respiratory/Chest: chest wall non-tender, lungs clear Breasts: no masses Cardiovascular/Chest: normal peripheral pulses Abdomen: normal bowel sounds, soft, hyperactive bowel sounds Genitourinary/Rectal: normal genital exam Extremities: normal range of motion, non-tender, normal inspection Skin Exam: normal pigmentation Neurologic: 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 director II-XII grossly normal Last 24 Hour Vital Signs Date Time Temp Pulse Resp B/P (MAP) Pulse Ox O2 Delivery O2 Flow Rate FiO2 08/06/17 12:23 85 16 98 Room Air 21 08/06/17 12:15 87 16 98 Room Air 21 08/06/17 12:15 21 08/06/17 08:11 103 130/62 08/06/17 08:00 97.2 103 19 130/62 97 Nasal Cannula 2.0 97.2 08/06/17 08:00 103 08/06/17 07:30 88 18 100 Nasal Cannula 2.0 28 08/06/17 07:21 89 18 100 Nasal Cannula 2.0 28 08/06/17 07:21 28 08/06/17 04:00 96.7 87 19 115/61 96 Nasal Cannula 2.0 96.7 08/06/17 04:00 92 08/06/17 01:36 98 20 99 Nasal Cannula 2.0 28 08/06/17 01:32 28 08/06/17 01:30 97 20 97 Nasal Cannula 2.0 28 08/06/17 00:00 98 08/06/17 00:00 97.1 94 20 118/56 96 Nasal Cannula 2.0 97.1 08/05/17 21:00 102 08/05/17 20:55 97.7 103 19 137/72 100 Nasal Cannula 2.0 97.7 08/05/17 20:49 98.3 100 24 120/47 97 Room Air 2.0 98.3 08/05/17 20:21 100 24 120/47 97 Room Air 08/05/17 18:00 98.3 102 16 115/45 96 Room Air 98.3 08/05/17 15:56 98.5 95 20 121/63 96 Nasal Cannula 98.5 08/05/17 14:44 94 20 100 Nasal Cannula 5.0 08/05/17 14:42 94 20 100 Simple Mask 5.0 08/05/17 14:27 94 20 100 Nasal Cannula 5.0 08/05/17 14:27 94 20 100 Simple Mask 5.0 08/05/17 14:12 91 16 100 Simple Mask 5.0 08/05/17 14:10 91 16 Simple Mask 5.0 08/05/17 13:40 98.9 104 24 131/68 100 Venturi Mask 98.9 08/05/17 13:40 104 24 Room Air 08/05/17 13:30 106 20 206/110 99 Venturi Mask Intake and Output 08/05/17 08/06/17 18:59 06:59 Intake Total 275 ml 110 ml Balance 275 ml 110 ml Intake Oral 0 ml IV Total 275 ml 110 ml # Voids 1 3 # Bowel Movements 1 Laboratory Tests Test 08/05/17 14:25 08/05/17 15:30 08/06/17 07:20 White Blood Count 13.0 K/UL (4.8-10.8) H 11.6 K/UL (4.8-10.8) H Red Blood Count 4.96 M/UL (4.20-5.40) 4.95 M/UL (4.20-5.40) Hemoglobin 14.8 G/DL (12.0-16.0) 15.0 G/DL (12.0-16.0) Hematocrit 44.6 % (37.0-47.0) 43.8 % (37.0-47.0) Mean Corpuscular Volume 90 FL (80-99) 89 FL (80-99) Mean Corpuscular Hemoglobin 29.8 PG (27.0-31.0) 30.4 PG (27.0-31.0) Mean Corpuscular Hemoglobin Concent 33.1 G/DL (32.0-36.0) 34.3 G/DL (32.0-36.0) Red Cell Distribution Width 13.4 % (11.6-14.8) 13.2 % (11.6-14.8) Platelet Count 227 K/UL (150-450) 238 K/UL (150-450) Mean Platelet Volume 10.0 FL (6.5-10.1) 10.3 FL (6.5-10.1) H Neutrophils (%) (Auto) 74.9 % (45.0-75.0) % (45.0-75.0) Lymphocytes (%) (Auto) 14.8 % (20.0-45.0) L % (20.0-45.0) Monocytes (%) (Auto) 8.5 % (1.0-10.0) % (1.0-10.0) Eosinophils (%) (Auto) 1.3 % (0.0-3.0) % (0.0-3.0) Basophils (%) (Auto) 0.6 % (0.0-2.0) % (0.0-2.0) Sodium Level 143 MMOL/L (136-145) 144 MMOL/L (136-145) Potassium Level 3.5 MMOL/L (3.5-5.1) 3.7 MMOL/L (3.5-5.1) Chloride Level 104 MMOL/L (98-107) 106 MMOL/L (98-107) Carbon Dioxide Level 31 MMOL/L (21-32) 29 MMOL/L (21-32) Anion Gap 9 mmol/L (5-15) 9 mmol/L (5-15) Blood Urea Nitrogen 10 mg/dL (7-18) 10 mg/dL (7-18) Creatinine 0.8 MG/DL (0.55-1.30) 0.9 MG/DL (0.55-1.30) Estimat Glomerular Filtration Rate mL/min (>60) mL/min (>60) Glucose Level 133 MG/DL (74-106) H 155 MG/DL (74-106) H Calcium Level 9.1 MG/DL (8.5-10.1) 9.6 MG/DL (8.5-10.1) Total Bilirubin 0.4 MG/DL (0.2-1.0) 0.5 MG/DL (0.2-1.0) Aspartate Amino Transf (AST/SGOT) 39 U/L (15-37) H 27 U/L (15-37) Alanine Aminotransferase (ALT/SGPT) 28 U/L (12-78) 24 U/L (12-78) Alkaline Phosphatase 148 U/L (46-116) H 135 U/L (46-116) H Total Creatine Kinase 65 U/L (26-308) Creatine Kinase MB 1.3 NG/ML (0.0-3.6) Creatine Kinase MB Relative Index 2.0 Troponin I 0.123 ng/mL (0.000-0.056) 0.500 ng/mL (0.000-0.056) Total Protein 7.4 G/DL (6.4-8.2) 7.3 G/DL (6.4-8.2) Albumin 3.3 G/DL (3.4-5.0) L 3.3 G/DL (3.4-5.0) L Globulin 4.1 g/dL 4.0 g/dL Albumin/Globulin Ratio 0.8 (1.0-2.7) L 0.8 (1.0-2.7) L Arterial Blood pH 7.380 (7.350-7.450) Arterial Blood Partial Pressure CO2 47.4 mmHg (35.0-45.0) H Arterial Blood Partial Pressure O2 73.8 mmHg (75.0-100.0) L Arterial Blood HCO3 27.8 mmol/L (22.0-26.0) H Arterial Blood Oxygen Saturation 94.2 % (92.0-98.0) Arterial Blood Base Excess 2.0 Javier Test Positive Differential Total Cells Counted 100 Neutrophils % (Manual) 92 % (45-75) H Lymphocytes % (Manual) 7 % (20-45) L Monocytes % (Manual) 1 % (1-10) Eosinophils % (Manual) 0 % (0-3) Basophils % (Manual) 0 % (0-2) Band Neutrophils 0 % (0-8) Platelet Estimate Adequate Platelet Morphology Normal Red Blood Cell Morphology Normal Pro-B-Type Natriuretic Peptide 1690 pg/mL (0-125) H Height (Feet): 5 Height (Inches): 1.00 Weight (Pounds): 154 Medications Current Medications Medications (Trade) Dose Ordered Sig/Faye Route PRN Reason Start Time Stop Time Status Last Admin Dose Admin Acetaminophen (Tylenol) 650 mg Q4H PRN ORAL Mild Pain (Pain Scale 1-3) 08/05/17 18:30 09/04/17 18:29 Acetaminophen (Tylenol) 650 mg Q4H PRN ORAL T>100.5 08/05/17 18:30 09/04/17 18:29 Acetaminophen (Tylenol) 650 mg Q4H PRN RECTAL Mild Pain (Pain Scale 1-3) 08/05/17 18:30 09/04/17 18:29 Acetaminophen (Tylenol) 650 mg Q4H PRN RECTAL T>100.5 08/05/17 18:30 09/04/17 18:29 Albuterol/ Ipratropium (Albuterol/ Ipratropium) 3 ml Q4H PRN HHN sob, wheezing 08/05/17 18:30 08/10/17 18:29 Albuterol/ Ipratropium (Albuterol/ Ipratropium) 3 ml Q6HRT HHN 08/05/17 19:00 08/10/17 18:59 08/06/17 12:15 Aspirin (ASA) 81 mg DAILY ORAL 08/06/17 09:00 09/05/17 08:59 08/06/17 08:10 Azithromycin (Zithromax) 500 mg DAILY ORAL 08/06/17 09:00 08/13/17 08:59 08/06/17 08:11 Bisacodyl (Dulcolax) 10 mg DAILYPRN PRN RECTAL Constipation 08/05/17 18:30 09/04/17 18:29 Dextrose (Dextrose 50%) STAT PRN IV Hypoglycemia 08/05/17 18:30 09/04/17 18:29 Docusate Sodium (Colace) 100 mg EVERY 12 HOURS ORAL 08/05/17 21:00 09/04/17 20:59 Heparin Sodium (Porcine) (Heparin 5000 units/ml) 5,000 units EVERY 12 HOURS SUBQ 08/05/17 21:00 09/04/17 20:59 08/06/17 08:12 Methylprednisolone Sodium Succinate (Solu-MEDROL) 60 mg EVERY 6 HOURS IV 08/06/17 06:00 09/05/17 05:59 08/06/17 12:05 Nifedipine (Adalat) 30 mg Q12HR ORAL 08/06/17 09:00 09/05/17 08:59 08/06/17 08:11 Ondansetron HCl (Zofran) 4 mg Q6H PRN IVP Nausea & Vomiting 08/05/17 18:30 09/04/17 18:29 Polyethylene Glycol (Miralax) 17 gm DAILYPRN PRN ORAL Constipation 08/05/17 18:30 09/04/17 18:29 Salmeterol Xinafoate/ Fluticasone (Advair 250/50 Diskus) 1 puffs BID INH 08/06/17 09:00 09/05/17 08:59 Theophylline (Lamine-Dur) 100 mg EVERY 12 HOURS ORAL 08/05/17 21:00 09/04/17 20:59 08/06/17 08:11 Assessment/Plan Problem List: (1) Asthma exacerbation ICD Codes: J45.901 - Unspecified asthma with (acute) exacerbation SNOMED: 269403078 Qualifiers: Qualified Codes: J45.21 - Mild intermittent asthma with (acute) exacerbation (2) Elevated troponin ICD Codes: R74.8 - Abnormal levels of other serum enzymes SNOMED: 825029544, 710707441, [id number] (3) HTN (hypertension) ICD Codes: I10 - Essential (primary) hypertension SNOMED: 08684747 (4) History of asthma ICD Codes: Z87.09 - Personal history of other diseases of the respiratory system SNOMED: 632277367 Assessment/Plan respiratory treatment IV steroids check sputum IV abx ech f/u troponin cardio to see Madhav Quintero MD Aug 06, 2017 13:16
--- NOTE | 2017-08-06 15:48 | Cardiology Progress Note ---
Assessment/Plan Assessment/Plan asthma min abd cardaic enzyme deman related obesity reported diarrhea [id number] repeat trop ekg echo ecotrin for now Objective Last 24 Hour Vital Signs Date Time Temp Pulse Resp B/P (MAP) Pulse Ox O2 Delivery O2 Flow Rate FiO2 08/06/17 12:23 85 16 98 Room Air 21 08/06/17 12:15 87 16 98 Room Air 21 08/06/17 12:15 21 08/06/17 12:00 97.3 95 20 103/50 98 Nasal Cannula 2.0 97.3 08/06/17 08:11 103 130/62 08/06/17 08:00 97.2 103 19 130/62 97 Nasal Cannula 2.0 97.2 08/06/17 08:00 103 08/06/17 07:30 88 18 100 Nasal Cannula 2.0 28 08/06/17 07:21 89 18 100 Nasal Cannula 2.0 28 08/06/17 07:21 28 08/06/17 04:00 96.7 87 19 115/61 96 Nasal Cannula 2.0 96.7 08/06/17 04:00 92 08/06/17 01:36 98 20 99 Nasal Cannula 2.0 28 08/06/17 01:32 28 08/06/17 01:30 97 20 97 Nasal Cannula 2.0 28 08/06/17 00:00 98 08/06/17 00:00 97.1 94 20 118/56 96 Nasal Cannula 2.0 97.1 08/05/17 21:00 102 08/05/17 20:55 97.7 103 19 137/72 100 Nasal Cannula 2.0 97.7 08/05/17 20:49 98.3 100 24 120/47 97 Room Air 2.0 98.3 08/05/17 20:21 100 24 120/47 97 Room Air 08/05/17 18:00 98.3 102 16 115/45 96 Room Air 98.3 08/05/17 15:56 98.5 95 20 121/63 96 Nasal Cannula 98.5 Intake and Output 08/05/17 08/06/17 19:00 07:00 Intake Total 275 ml 110 ml Balance 275 ml 110 ml Intake Oral 0 ml IV Total 275 ml 110 ml # Voids 1 3 # Bowel Movements 1 Laboratory Tests Test 08/06/17 07:20 White Blood Count 11.6 K/UL (4.8-10.8) H Red Blood Count 4.95 M/UL (4.20-5.40) Hemoglobin 15.0 G/DL (12.0-16.0) Hematocrit 43.8 % (37.0-47.0) Mean Corpuscular Volume 89 FL (80-99) Mean Corpuscular Hemoglobin 30.4 PG (27.0-31.0) Mean Corpuscular Hemoglobin Concent 34.3 G/DL (32.0-36.0) Red Cell Distribution Width 13.2 % (11.6-14.8) Platelet Count 238 K/UL (150-450) Mean Platelet Volume 10.3 FL (6.5-10.1) H Neutrophils (%) (Auto) % (45.0-75.0) Lymphocytes (%) (Auto) % (20.0-45.0) Monocytes (%) (Auto) % (1.0-10.0) Eosinophils (%) (Auto) % (0.0-3.0) Basophils (%) (Auto) % (0.0-2.0) Differential Total Cells Counted 100 Neutrophils % (Manual) 92 % (45-75) H Lymphocytes % (Manual) 7 % (20-45) L Monocytes % (Manual) 1 % (1-10) Eosinophils % (Manual) 0 % (0-3) Basophils % (Manual) 0 % (0-2) Band Neutrophils 0 % (0-8) Platelet Estimate Adequate Platelet Morphology Normal Red Blood Cell Morphology Normal Sodium Level 144 MMOL/L (136-145) Potassium Level 3.7 MMOL/L (3.5-5.1) Chloride Level 106 MMOL/L (98-107) Carbon Dioxide Level 29 MMOL/L (21-32) Anion Gap 9 mmol/L (5-15) Blood Urea Nitrogen 10 mg/dL (7-18) Creatinine 0.9 MG/DL (0.55-1.30) Estimat Glomerular Filtration Rate mL/min (>60) Glucose Level 155 MG/DL (74-106) H Calcium Level 9.6 MG/DL (8.5-10.1) Total Bilirubin 0.5 MG/DL (0.2-1.0) Aspartate Amino Transf (AST/SGOT) 27 U/L (15-37) Alanine Aminotransferase (ALT/SGPT) 24 U/L (12-78) Alkaline Phosphatase 135 U/L (46-116) H Troponin I 0.500 ng/mL (0.000-0.056) Pro-B-Type Natriuretic Peptide 1690 pg/mL (0-125) H Total Protein 7.3 G/DL (6.4-8.2) Albumin 3.3 G/DL (3.4-5.0) L Globulin 4.0 g/dL Albumin/Globulin Ratio 0.8 (1.0-2.7) L ADRIÁN BROWN Aug 06, 2017 15:48
[2017-08-06 17:58] VITALS: BP 120/72
--- NOTE | 2017-08-06 18:16 | Cardiology Report ---
APPROVED REPORT EXAM: Two-dimensional and M-mode echocardiogram with Doppler and color Doppler. INDICATION LV function M-Mode DIMENSIONS IVSd1.4 (0.7-1.1cm)Left Atrium (MM)3.7 (1.6-4.0cm) LVDd3.4 (3.5-5.6cm)Aortic Root2.7 (2.0-3.7cm) PWd1.4 (0.7-1.1cm)Aortic Cusp Exc.1.7 (1.5-2.0cm) LVDs1.4 (2.5-4.0cm) PWs1.8 cm Normal left ventricular chamber size, hyperdynamic systolic function and wall motion. Left ventricular ejection fraction estimated to be 75 %. Mild left ventricular hypertrophy. No evidence of pericardial effusion. Left atrial size at upper limits of normal. Right cardiac chamber sizes are within normal limits. Focal aortic valve sclerosis with adequate cusp excursion. Thickened mitral valve leaflets with normal excursion. Mitral annulus and aortic root calcification. Pulmonic valve not well visualized. Normal tricuspid valve structure. IVC at normal size with physiologic collapse. A color flow and spectral Doppler study was performed and revealed: Trace mitral regurgitation. Mitral diastolic velocities suggest reduced left ventricular relaxation c/w mild LV diastolic dysfunction (Grade I ). Trace tricuspid regurgitation. Tricuspid systolic velocities suggests peak right ventricular systolic pressure of 17 mmHg.
--- NOTE | 2017-08-06 18:37 | Cardiology Report ---
APPROVED REPORT EKG Measurement Heart [id number] Normal sinus rhythm Possible Left atrial enlargement Incomplete right bundle branch block Nonspecific ST and T wave abnormality Prolonged QT Abnormal ECG
[2017-08-06 20:00] VITALS: BP 118/58
--- NOTE | 2017-08-06 22:01 | Consultation ---
DATE OF CONSULTATION: 08/06/2017 CARDIOLOGY CONSULTATION CONSULTING PHYSICIAN: Stevie Navarro M.D. REFERRING PHYSICIAN: Madhav Qiuntero M.D. REASON FOR REFERRAL: Shortness of breath. HISTORY OF PRESENT ILLNESS: This is an 82-year-old female, who has been admitted to the hospital because of shortness of breath. She tells me she has been short of breath for a long time, but her son indicates that the shortness of breath came on rapidly yesterday. She has been coughing and wheezing. She has shortness of breath on exertion. She has PND. She has one pillow usage. She does get lightheaded when she stands up ambulation. She is off balance. She thinks that she has occasional palpitations. PAST MEDICAL HISTORY: Positive for history of high blood pressure, history of asthma. No heart attack. No cancer. No stroke. No hepatitis or tuberculosis. No ulcers. No kidney problems, liver problems, thyroid problems, or anemia. She does have arthritis. She denies any HIV, AIDS, blood clots, or any other medical problems. ALLERGIES: She is allergic to codeine. SOCIAL HISTORY: She has never smoked or drank. No drug use. 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 Now, she needs the care she indicates. REVIEW OF SYSTEMS: GASTROINTESTINAL: She has had some diarrhea and some black stools. GENITOURINARY: Negative. PULMONARY: Positive cough and wheezing. Sputum is white. CONSTITUTIONAL: Negative. NEUROLOGIC: Numbness and tingling sensation. Occasional blurred vision. PHYSICAL EXAMINATION: GENERAL: Shows to be an elderly female, in no respiratory distress. VITAL SIGNS: Blood pressure is 103/50 to 130/62. NECK: Supple. No jugular venous distention. LUNGS: Decreased breath sounds bilaterally. There are few expiratory wheezes. CARDIAC: Regular rhythm. Tachycardic. No heaves or thrills noted. ABDOMEN: Soft and nontender. Positive bowel sounds. EXTREMITIES: There is no clubbing or cyanosis. There is no edema. NEUROLOGIC: She is awake, alert, responsive, and in no apparent distress. LABORATORY AND DIAGNOSTIC DATA: Laboratory values, white count of 11.6, hemoglobin 15, and platelet count of 238. White count was 13,000 at the time of admission yesterday. Her sodium 144, potassium 3.5, chloride 106, bicarbonate 29, BUN of 10, creatinine 0.5, glucose of 155. Her cardiac enzymes, her troponins yesterday are 0.123 and today 0.5. Her proBNP was 1600. Her albumin of 3.3. Chest x-ray performed yesterday shows basically basilar and perihilar atelectasis, no acute process otherwise, and x-ray from yesterday was also read as no acute processes by the radiologist. Her electrocardiogram shows sinus rhythm, normal QRS axis, some delay in R-wave progression, nonspecific T-wave changes are noted on this EKG. This was the EKG performed by the paramedics. Telemetry data showed sinus and/or sinus tachycardia, no atrial fibrillation, and no other issues . ASSESSMENT AND PLAN: 1. Abnormal cardiac enzymes, not yet meeting criteria for non-ST elevation myocardial infarction based on [employer]. 2. Sinus tachycardia, secondary to probable beta-agonist inhaler usage. 3. Asthma/emphysema with exacerbation. 4. History of hypertension. 5. Obesity. 6. Reported diarrhea. This is an elderly female, who is seen in cardiac consultation, who has had some shortness of breath for a long time, now appears to be exacerbated. She is saturating 98% at the present time. Her blood pressures are borderline low. She indicates she has had some black stools. Her hemoglobin has been however relatively stable between yesterday and today. Her breathing at this time appears to be relatively stable and she does not have any crackles on her examination and her EKG does not show any significant acute ST-T wave abnormalities. I will repeat the electrocardiogram. Cardiac enzymes are minimally abnormal, but she does not have any pain at this time. It is possible that she basically has demand ischemia. Echocardiogram will be performed. Cardiac enzymes will be repeated. EKG will also be performed for further recommendations regarding cardiac enzyme abnormality. I will follow the patient along with you. Stevie Navarro M.D. DR: Fide JOB#: [id number] CC:
[2017-08-07] VITALS: BP 113/55
[2017-08-07] MEDS: Albuterol/Ipratropium 3ml neb HHN SCH ×4 (01:25→19:55)
[2017-08-07] MEDS: Advair 250/50 Inhaler - 14 dose INH SCH ×3 (01:25→22:49)
[2017-08-07 04:00] VITALS: BP 102/43
[2017-08-07] MEDS: Solu-MEDROL 125mg Inj IV SCH ×2 (05:35→12:30)
[2017-08-07 08:00] VITALS: BP 98/53
[2017-08-07] MEDS: NIFEdipine 10mg cap ORAL SCH ×2 (09:00→21:02)
[2017-08-07] MEDS: Docusate 100mg cap ORAL SCH ×2 (09:00→21:00)
[2017-08-07] MEDS: Theophylline ER 100mg ORAL SCH ×2 (09:19→21:02)
[2017-08-07] MEDS: Aspirin Baby 81mg ORAL SCH (09:19)
[2017-08-07] MEDS: Azithromycin 250mg tab ORAL SCH (09:19)
[2017-08-07] MEDS: Heparin 5000 units/ml inj SUBQ SCH ×2 (09:21→21:04)
--- NOTE | 2017-08-07 11:37 | Physician Query ---
--------- THIS DOCUMENT IS A PERMANENT PART OF THE MEDICAL RECORD --------- PLEASE COMPLETE THE FORM BEFORE SIGNING Dear Dr. Quintero Date 08/07/17 Edge Gluer/AMADOU Newsome/JANELL Edge Gluer/[facility] Phone #: [phone] Exercise your independent professional judgment when responding to query. Questions asked do not imply particular answer is desired or expected. We greatly appreciate your clarification on this issue. Clinical Documentation States: "ASTHMA EXACERBATION" -- documented in Dr. Quintero's Consultation note "Saturating 69% on the scene. Breathing treatment given now O2sat 99% on Venturi mask-- documented in ED Report Clinical Findings Show: ABG:_pH 7.380, pCO2 47.4, pO2 73.8 RR:24/min, labored Please clarify if the patient had any of the following conditions based on the above clinical findings: [] Acute Respiratory Failure [] Acute on Chronic Respiratory Failure [] Chronic (on home O2) Respiratory Failure [] Acute Respiratory Distress [] Acute Respiratory Insufficiency [] Respiratory failure due to trauma [] Respiratory insufficiency due to trauma [] Unable to determine [] Other: Condition Present on Admission: [] Yes [] No []Clinically Undeterminable Please also document in your Progress Notes and/or Discharge Summary and indicate if the condition was present on admission. LAI QUINTERO M.D. DATE & TIME [facility]
[2017-08-07 12:00] VITALS: BP 132/67
[2017-08-07 16:00] VITALS: BP 140/61
--- NOTE | 2017-08-07 16:01 | Pulmonology Progress Note ---
Assessment/Plan Problems: (1) Asthma exacerbation (2) Elevated troponin (3) HTN (hypertension) (4) History of asthma Assessment/Plan improving respiratory treatment decrease steroids on Zithromax po OK to med/surg if cardio agrees. Subjective ROS Limited/Unobtainable: No Constitutional: Reports: no symptoms HEENT: Repors: no symptoms Allergies: Coded Allergies: CODEINE (Verified Allergy, Unknown, 05/11/17) Objective Last 24 Hour Vital Signs Date Time Temp Pulse Resp B/P (MAP) Pulse Ox O2 Delivery O2 Flow Rate FiO2 08/07/17 12:04 102 20 98 Room Air 21 08/07/17 12:00 97.2 100 18 132/67 100 Room Air 97.2 08/07/17 11:51 99 08/07/17 11:27 100 22 100 Room Air 21 08/07/17 09:00 111 98/53 08/07/17 08:00 97.9 111 19 98/53 98 Room Air 97.9 08/07/17 07:54 119 08/07/17 07:05 107 18 98 Room Air 21 08/07/17 06:56 108 18 98 Room Air 21 08/07/17 04:00 106 08/07/17 04:00 97.5 107 16 102/43 96 Room Air 97.5 08/07/17 01:26 96 16 97 Room Air 21 08/07/17 01:25 90 16 95 Room Air 21 08/07/17 00:00 98.2 79 18 113/55 98 Room Air 98.2 08/07/17 00:00 85 08/06/17 20:32 86 118/58 08/06/17 20:00 101 08/06/17 20:00 98.4 86 18 118/58 96 98.4 08/06/17 19:25 94 16 99 Room Air 21 08/06/17 19:24 91 16 97 Room Air 21 08/06/17 17:58 97.3 90 20 120/72 98 Nasal Cannula 2.0 97.3 08/06/17 16:20 92 Intake and Output 08/06/17 08/07/17 19:00 07:00 Intake Total 760 ml Balance 760 ml Intake Oral 760 ml # Voids 2 # Bowel Movements 1 General Appearance: WD/WN HEENT: normocephalic, atraumatic Respiratory/Chest: chest wall non-tender Cardiovascular: normal peripheral pulses Abdomen: normal bowel sounds, non distended Genitourinary: normal external genitalia Skin: no lesions Neurologic/Psychiatric: methods analyst II-XII grossly normal Laboratory Tests 08/07/17 10:40: Troponin I 0.139H, Pro-B-Type Natriuretic Peptide 776H Current Medications Medications (Trade) Dose Ordered Sig/Faye Route PRN Reason Start Time Stop Time Status Last Admin Dose Admin Acetaminophen (Tylenol) 650 mg Q4H PRN ORAL Mild Pain (Pain Scale 1-3) 08/05/17 18:30 09/04/17 18:29 Acetaminophen (Tylenol) 650 mg Q4H PRN ORAL T>100.5 08/05/17 18:30 09/04/17 18:29 Acetaminophen (Tylenol) 650 mg Q4H PRN RECTAL Mild Pain (Pain Scale 1-3) 08/05/17 18:30 09/04/17 18:29 Acetaminophen (Tylenol) 650 mg Q4H PRN RECTAL T>100.5 08/05/17 18:30 09/04/17 18:29 Albuterol/ Ipratropium (Albuterol/ Ipratropium) 3 ml Q4H PRN HHN sob, wheezing 08/05/17 18:30 08/10/17 18:29 Albuterol/ Ipratropium (Albuterol/ Ipratropium) 3 ml Q6HRT HHN 08/05/17 19:00 08/10/17 18:59 08/07/17 11:27 Aspirin (ASA) 81 mg DAILY ORAL 08/06/17 09:00 09/05/17 08:59 08/07/17 09:19 Azithromycin (Zithromax) 500 mg DAILY ORAL 08/06/17 09:00 08/13/17 08:59 08/07/17 09:19 Bisacodyl (Dulcolax) 10 mg DAILYPRN PRN RECTAL Constipation 08/05/17 18:30 09/04/17 18:29 Dextrose (Dextrose 50%) STAT PRN IV Hypoglycemia 08/05/17 18:30 09/04/17 18:29 Docusate Sodium (Colace) 100 mg EVERY 12 HOURS ORAL 08/05/17 21:00 09/04/17 20:59 Heparin Sodium (Porcine) (Heparin 5000 units/ml) 5,000 units EVERY 12 HOURS SUBQ 08/05/17 21:00 09/04/17 20:59 08/07/17 09:21 Methylprednisolone Sodium Succinate (Solu-MEDROL) 60 mg EVERY 6 HOURS IV 08/06/17 06:00 09/05/17 05:59 08/07/17 12:30 Nifedipine (Adalat) 30 mg Q12HR ORAL 08/06/17 09:00 09/05/17 08:59 08/06/17 20:32 Ondansetron HCl (Zofran) 4 mg Q6H PRN IVP Nausea & Vomiting 08/05/17 18:30 09/04/17 18:29 Polyethylene Glycol (Miralax) 17 gm DAILYPRN PRN ORAL Constipation 08/05/17 18:30 09/04/17 18:29 Salmeterol Xinafoate/ Fluticasone (Advair 250/50 Diskus) 1 puffs BIDRT INH 08/06/17 22:00 09/05/17 21:59 08/07/17 09:59 Theophylline (Lamine-Dur) 100 mg EVERY 12 HOURS ORAL 08/05/17 21:00 09/04/17 20:59 08/07/17 09:19 Madhav Quintero MD Aug 07, 2017 16:01
--- NOTE | 2017-08-07 16:38 | Cardiology Report ---
APPROVED REPORT EKG Measurement Heart [id number] CA 138P [id number] Sinus tachycardia with premature atrial complexes Right bundle branch block Left posterior fascicular block Bifascicular block Inferior infarct, age undetermined Abnormal ECG
--- NOTE | 2017-08-07 16:39 | General Progress Note ---
Assessment/Plan Problem List: (1) Acute respiratory failure with hypoxia ICD Codes: J96.01 - Acute respiratory failure with hypoxia SNOMED: 58091097, 920969528 (2) Asthma exacerbation ICD Codes: J45.901 - Unspecified asthma with (acute) exacerbation SNOMED: 366511736 Qualifiers: Qualified Codes: J45.21 - Mild intermittent asthma with (acute) exacerbation (3) Upper respiratory infection ICD Codes: J06.9 - Acute upper respiratory infection, unspecified SNOMED: 91099273 (4) Elevated troponin Assessment & Plan: possible demand ischemia vs NSTEMI ICD Codes: R74.8 - Abnormal levels of other serum enzymes SNOMED: 390601670, 697524737, 668321361 (5) HTN (hypertension) ICD Codes: I10 - Essential (primary) hypertension SNOMED: 38907874 (6) Right bundle branch block ICD Codes: I45.10 - Unspecified right bundle-branch block SNOMED: 55372412 Status: stable Assessment/Plan Pulm and cardiology consulted s/p solumedrol 125mg IV in ED Cont IV steroids per pulm and taper as tolerated Duonebs ATC and PRN Azithromycin 500mg daily Cont O2 and wean as tolerated Trend trop/EKG--downtrending. Per cardiology doesn't meet criteria for NSTEMI Check TTE--EF wnl Pain control, bowel regimen Supportive care Possible d/c tomorrow if continues to improve DVT ppx: SCDs, HSQ FULL CODE D/w pt, RN, pulm regarding mgmt and dispo Subjective Date patient seen: Aug 07, 2017 Time patient seen: 16:39 ROS Limited/Unobtainable: No Constitutional: Reports: no symptoms HEENT: Reports: no symptoms Cardiovascular: Reports: no symptoms Respiratory: Reports: cough, shortness of breath Gastrointestinal/Abdominal: Reports: no symptoms Genitourinary: Reports: no symptoms Neurologic/Psychiatric: Reports: no symptoms Endocrine: Reports: no symptoms Hematologic/Lymphatic: Reports: no symptoms Allergies: Coded Allergies: CODEINE (Verified Allergy, Unknown, 05/11/17) All Systems: reviewed and negative except above Subjective No acute o/n events Feeling a little better. Still w/ some cough and SOB Objective Last 24 Hour Vital Signs Date Time Temp Pulse Resp B/P (MAP) Pulse Ox O2 Delivery O2 Flow Rate FiO2 08/07/17 16:00 97.7 109 20 140/61 97 Room Air 97.7 08/07/17 12:04 102 20 98 Room Air 21 08/07/17 12:00 97.2 100 18 132/67 100 Room Air 97.2 08/07/17 11:51 99 08/07/17 11:27 100 22 100 Room Air 21 08/07/17 09:00 111 98/53 08/07/17 08:00 97.9 111 19 98/53 98 Room Air 97.9 08/07/17 07:54 119 08/07/17 07:05 107 18 98 Room Air 21 08/07/17 06:56 108 18 98 Room Air 21 08/07/17 04:00 106 08/07/17 04:00 97.5 107 16 102/43 96 Room Air 97.5 08/07/17 01:26 96 16 97 Room Air 21 08/07/17 01:25 90 16 95 Room Air 21 08/07/17 00:00 98.2 79 18 113/55 98 Room Air 98.2 08/07/17 00:00 85 08/06/17 20:32 86 118/58 08/06/17 20:00 101 08/06/17 20:00 98.4 86 18 118/58 96 98.4 08/06/17 19:25 94 16 99 Room Air 21 08/06/17 19:24 91 16 97 Room Air 21 08/06/17 17:58 97.3 90 20 120/72 98 Nasal Cannula 2.0 97.3 Intake and Output 08/06/17 08/07/17 19:00 07:00 Intake Total 760 ml Balance 760 ml Intake Oral 760 ml # Voids 2 # Bowel Movements 1 Laboratory Tests 08/07/17 10:40: Troponin I 0.139H, Pro-B-Type Natriuretic Peptide 776H Height (Feet): 5 Height (Inches): 1.00 Weight (Pounds): 154 Objective General: alert, cooperative, no distress, appears stated age Head: normocephalic, without obvious abnormality, atraumatic Eyes: conjunctivae/corneas clear. PERRL, EOM's intact Throat: lips, mucosa, and tongue normal. MMM Neck: supple, symmetrical, trachea midline, and no JVD Lungs: +mild wheezing b/l Heart: regular rate and rhythm, S1, S2 normal, no murmur, click, rub or gallop Abdomen: soft, non-tender, non-distended, bowel sounds normal; no masses or organomegaly Extremities: extremities normal, atraumatic, no cyanosis or edema Pulses: 2+ and symmetric Skin: skin color, texture, turgor normal; no rashes or lesions Neurologic: grossly normal, no focal deficits Elise Camarena M.D. Aug 07, 2017 16:39
--- NOTE | 2017-08-07 18:29 | Cardiology Progress Note ---
Assessment/Plan Assessment/Plan 1. Abnormal cardiac enzymes, not yet meeting criteria for myocardial infarction based on [employer]. 2. Sinus tachycardia, secondary to probable beta-agonist inhaler usage. 3. Asthma/emphysema with exacerbation. 4. History of hypertension. 5. Obesity. 6. Reported diarrhea. tele sinus rbbb echo normal wall motion ef 75% repeat trop ekg rbbb not changed since 06/2017 older previous older ekg cannot be pulled up to review no sx to suggest acs ecotrin statin for now hgb remain stable Subjective Cardiovascular: Reports: lightheadedness, Denies: chest pain Respiratory: Reports: shortness of breath Gastrointestinal/Abdominal: Denies: abdominal pain Genitourinary: Denies: burning Objective Last 24 Hour Vital Signs Date Time Temp Pulse Resp B/P (MAP) Pulse Ox O2 Delivery O2 Flow Rate FiO2 08/07/17 16:00 97.7 109 20 140/61 97 Room Air 97.7 08/07/17 15:34 118 08/07/17 12:04 102 20 98 Room Air 21 08/07/17 12:00 97.2 100 18 132/67 100 Room Air 97.2 08/07/17 11:51 99 08/07/17 11:27 100 22 100 Room Air 21 08/07/17 09:00 111 98/53 08/07/17 08:00 97.9 111 19 98/53 98 Room Air 97.9 08/07/17 07:54 119 08/07/17 07:05 107 18 98 Room Air 21 08/07/17 06:56 108 18 98 Room Air 21 08/07/17 04:00 106 08/07/17 04:00 97.5 107 16 102/43 96 Room Air 97.5 08/07/17 01:26 96 16 97 Room Air 21 08/07/17 01:25 90 16 95 Room Air 21 08/07/17 00:00 98.2 79 18 113/55 98 Room Air 98.2 08/07/17 00:00 85 08/06/17 20:32 86 118/58 08/06/17 20:00 101 08/06/17 20:00 98.4 86 18 118/58 96 98.4 08/06/17 19:25 94 16 99 Room Air 21 08/06/17 19:24 91 16 97 Room Air 21 General Appearance: no apparent distress, alert Neck: supple Cardiovascular: normal rate, tachycardia - midl Respiratory/Chest: lungs clear Abdomen: normal bowel sounds, non tender, soft Extremities: no swelling Intake and Output 08/06/17 08/07/17 19:00 07:00 Intake Total 760 ml Balance 760 ml Intake Oral 760 ml # Voids 2 # Bowel Movements 1 Laboratory Tests Test 08/07/17 10:40 Troponin I 0.139 ng/mL (0.000-0.056) Pro-B-Type Natriuretic Peptide 776 pg/mL (0-125) H ADRIÁN BROWN Aug 07, 2017 18:29
[2017-08-07 20:00] VITALS: BP 145/65
[2017-08-08] VITALS: BP 142/61
[2017-08-08] MEDS: Albuterol/Ipratropium 3ml neb HHN SCH ×3 (01:12→13:00)
[2017-08-08 04:00] VITALS: BP 139/78
[2017-08-08 08:00] VITALS: BP 130/67
[2017-08-08] MEDS: Aspirin Baby 81mg ORAL SCH (08:40)
[2017-08-08] MEDS: NIFEdipine 10mg cap ORAL SCH (08:41)
[2017-08-08] MEDS: Docusate 100mg cap ORAL SCH (08:41)
[2017-08-08] MEDS: Azithromycin 250mg tab ORAL SCH (08:42)
[2017-08-08] MEDS: Heparin 5000 units/ml inj SUBQ SCH (08:44)
[2017-08-08] MEDS ORDERED: Solu-MEDROL 125mg Inj IV SCH (09:00)
[2017-08-08] MEDS: Theophylline ER 100mg ORAL SCH (09:21)
[2017-08-08] MEDS: Advair 250/50 Inhaler - 14 dose INH SCH (09:53)
[2017-08-08 12:00] VITALS: BP 116/54
--- NOTE | 2017-08-08 13:46 | Pulmonology Progress Note ---
Assessment/Plan Problems: (1) Asthma exacerbation (2) Elevated troponin (3) HTN (hypertension) (4) History of asthma Assessment/Plan improving respiratory treatment decrease steroids on Zithromax po dc steroids OK to med/surg if cardio agrees. Subjective ROS Limited/Unobtainable: No Constitutional: Reports: no symptoms Respiratory: Reports: no symptoms Allergies: Coded Allergies: CODEINE (Verified Allergy, Unknown, 05/11/17) Objective Last 24 Hour Vital Signs Date Time Temp Pulse Resp B/P (MAP) Pulse Ox O2 Delivery O2 Flow Rate FiO2 08/08/17 12:00 97.5 97 18 116/54 96 Room Air 97.5 08/08/17 08:41 102 130/67 08/08/17 08:00 99.1 102 18 130/67 98 Room Air 99.1 08/08/17 07:48 105 08/08/17 07:41 97 Nasal Cannula 2.0 28 08/08/17 07:41 Nasal Cannula 2.0 28 08/08/17 07:40 91 22 97 Nasal Cannula 2.0 28 08/08/17 07:40 90 18 98 Nasal Cannula 2.0 28 08/08/17 04:00 97.8 84 18 139/78 97 Room Air 97.8 08/08/17 04:00 94 08/08/17 01:23 95 20 98 Nasal Cannula 2.0 28 08/08/17 01:13 107 22 97 Room Air 21 08/08/17 00:00 90 08/08/17 00:00 97.7 87 22 142/61 96 Room Air 97.7 08/07/17 21:02 91 145/65 08/07/17 20:04 94 20 99 Room Air 21 08/07/17 20:00 97.8 91 20 145/65 95 Room Air 97.8 08/07/17 20:00 101 08/07/17 19:54 87 22 97 Room Air 21 08/07/17 16:00 97.7 109 20 140/61 97 Room Air 97.7 08/07/17 15:34 118 Intake and Output 08/07/17 08/08/17 19:00 07:00 Intake Total 600 ml Output Total 500 ml Balance 600 ml -500 ml Intake Oral 600 ml Output Urine Total 500 ml # Voids 4 # Bowel Movements 1 General Appearance: WD/WN HEENT: normocephalic, atraumatic Respiratory/Chest: chest wall non-tender, lungs clear Breasts: no masses Cardiovascular: normal peripheral pulses, normal rate Abdomen: normal bowel sounds, non distended Extremities: no cyanosis Skin: no rash 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 grossly normal, no motor/sensory deficits Lymphatic: no neck adenopathy, no groin adenopathy Laboratory Tests 08/08/17 07:05: Troponin I 0.077H Current Medications Medications (Trade) Dose Ordered Sig/Faye Route PRN Reason Start Time Stop Time Status Last Admin Dose Admin Acetaminophen (Tylenol) 650 mg Q4H PRN ORAL Mild Pain (Pain Scale 1-3) 08/05/17 18:30 09/04/17 18:29 Acetaminophen (Tylenol) 650 mg Q4H PRN ORAL T>100.5 08/05/17 18:30 09/04/17 18:29 Acetaminophen (Tylenol) 650 mg Q4H PRN RECTAL Mild Pain (Pain Scale 1-3) 08/05/17 18:30 09/04/17 18:29 Acetaminophen (Tylenol) 650 mg Q4H PRN RECTAL T>100.5 08/05/17 18:30 09/04/17 18:29 Albuterol/ Ipratropium (Albuterol/ Ipratropium) 3 ml Q4H PRN HHN sob, wheezing 08/05/17 18:30 08/10/17 18:29 Albuterol/ Ipratropium (Albuterol/ Ipratropium) 3 ml Q6HRT HHN 08/05/17 19:00 08/10/17 18:59 08/08/17 07:39 Aspirin (ASA) 81 mg DAILY ORAL 08/06/17 09:00 09/05/17 08:59 08/08/17 08:40 Azithromycin (Zithromax) 500 mg DAILY ORAL 08/06/17 09:00 08/13/17 08:59 08/08/17 08:42 Bisacodyl (Dulcolax) 10 mg DAILYPRN PRN RECTAL Constipation 08/05/17 18:30 09/04/17 18:29 Dextrose (Dextrose 50%) STAT PRN IV Hypoglycemia 08/05/17 18:30 09/04/17 18:29 Docusate Sodium (Colace) 100 mg EVERY 12 HOURS ORAL 08/05/17 21:00 09/04/17 20:59 08/08/17 08:41 Heparin Sodium (Porcine) (Heparin 5000 units/ml) 5,000 units EVERY 12 HOURS SUBQ 08/05/17 21:00 09/04/17 20:59 08/08/17 08:44 Methylprednisolone Sodium Succinate (Solu-MEDROL) 60 mg DAILY IV 08/08/17 09:00 09/05/17 05:59 08/08/17 09:21 Nifedipine (Adalat) 30 mg Q12HR ORAL 08/06/17 09:00 09/05/17 08:59 08/08/17 08:41 Ondansetron HCl (Zofran) 4 mg Q6H PRN IVP Nausea & Vomiting 08/05/17 18:30 09/04/17 18:29 Polyethylene Glycol (Miralax) 17 gm DAILYPRN PRN ORAL Constipation 08/05/17 18:30 09/04/17 18:29 Salmeterol Xinafoate/ Fluticasone (Advair 250/50 Diskus) 1 puffs BIDRT INH 08/06/17 22:00 09/05/17 21:59 08/08/17 09:53 Theophylline (Lamine-Dur) 100 mg EVERY 12 HOURS ORAL 08/05/17 21:00 09/04/17 20:59 08/08/17 09:21 Madhav Quintero MD Aug 08, 2017 13:46
--- NOTE | 2017-08-08 15:33 | General Progress Note ---
Assessment/Plan Problem List: (1) Acute respiratory failure with hypoxia ICD Codes: J96.01 - Acute respiratory failure with hypoxia SNOMED: 16393866, 705501375 (2) Asthma exacerbation ICD Codes: J45.901 - Unspecified asthma with (acute) exacerbation SNOMED: 052838364 Qualifiers: Qualified Codes: J45.21 - Mild intermittent asthma with (acute) exacerbation (3) Upper respiratory infection ICD Codes: J06.9 - Acute upper respiratory infection, unspecified SNOMED: 86225275 (4) Elevated troponin Assessment & Plan: possible demand ischemia vs NSTEMI ICD Codes: R74.8 - Abnormal levels of other serum enzymes SNOMED: 329138176, 069988353, 797261021 (5) HTN (hypertension) ICD Codes: I10 - Essential (primary) hypertension SNOMED: 99461266 (6) Right bundle branch block ICD Codes: I45.10 - Unspecified right bundle-branch block SNOMED: 22448586 Status: doing well Assessment/Plan Pulm and cardiology consulted s/p solumedrol 125mg IV in ED Cont IV steroids per pulm and taper as tolerated Duonebs ATC and PRN Azithromycin 500mg daily Cont O2 and wean as tolerated Trend trop/EKG--downtrending. Per cardiology doesn't meet criteria for NSTEMI Check TTE--EF wnl Pain control, bowel regimen Supportive care DC home today. Per pulm no steroids needed on d/c DVT ppx: SCDs, HSQ FULL CODE D/w pt, RN, pulm regarding mgmt and dispo Subjective Date patient seen: Aug 08, 2017 Time patient seen: 12:00 ROS Limited/Unobtainable: No Constitutional: Reports: no symptoms HEENT: Reports: no symptoms Cardiovascular: Reports: no symptoms Respiratory: Reports: cough, shortness of breath Genitourinary: Reports: no symptoms Neurologic/Psychiatric: Reports: no symptoms Endocrine: Reports: no symptoms Hematologic/Lymphatic: Reports: no symptoms Allergies: Coded Allergies: CODEINE (Verified Allergy, Unknown, 05/11/17) All Systems: reviewed and negative except above Subjective No acute o/n events Feeling better. Still w/ some cough and SOB Feels anxious, using O2 to help but O2 sats good on room air Objective Last 24 Hour Vital Signs Date Time Temp Pulse Resp B/P (MAP) Pulse Ox O2 Delivery O2 Flow Rate FiO2 08/08/17 13:25 Nasal Cannula 08/08/17 13:25 Nasal Cannula 08/08/17 12:00 97.5 97 18 116/54 96 Room Air 97.5 08/08/17 08:41 102 130/67 08/08/17 08:00 99.1 102 18 130/67 98 Room Air 99.1 08/08/17 07:48 105 08/08/17 07:41 97 Nasal Cannula 2.0 28 08/08/17 07:41 Nasal Cannula 2.0 28 08/08/17 07:40 91 22 97 Nasal Cannula 2.0 28 08/08/17 07:40 90 18 98 Nasal Cannula 2.0 28 08/08/17 04:00 97.8 84 18 139/78 97 Room Air 97.8 08/08/17 04:00 94 08/08/17 01:23 95 20 98 Nasal Cannula 2.0 28 08/08/17 01:13 107 22 97 Room Air 21 08/08/17 00:00 90 08/08/17 00:00 97.7 87 22 142/61 96 Room Air 97.7 08/07/17 21:02 91 145/65 08/07/17 20:04 94 20 99 Room Air 21 08/07/17 20:00 97.8 91 20 145/65 95 Room Air 97.8 08/07/17 20:00 101 08/07/17 19:54 87 22 97 Room Air 21 08/07/17 16:00 97.7 109 20 140/61 97 Room Air 97.7 08/07/17 15:34 118 Intake and Output 08/07/17 08/08/17 19:00 07:00 Intake Total 600 ml Output Total 500 ml Balance 600 ml -500 ml Intake Oral 600 ml Output Urine Total 500 ml # Voids 4 # Bowel Movements 1 Laboratory Tests 08/08/17 07:05: Troponin I 0.077H Height (Feet): 5 Height (Inches): 1.00 Weight (Pounds): 154 Objective General: alert, cooperative, no distress, appears stated age Head: normocephalic, without obvious abnormality, atraumatic Eyes: conjunctivae/corneas clear. PERRL, EOM's intact Throat: lips, mucosa, and tongue normal. MMM Neck: supple, symmetrical, trachea midline, and no JVD Lungs: +mild wheezing b/l Heart: regular rate and rhythm, S1, S2 normal, no murmur, click, rub or gallop Abdomen: soft, non-tender, non-distended, bowel sounds normal; no masses or organomegaly Extremities: extremities normal, atraumatic, no cyanosis or edema Pulses: 2+ and symmetric Skin: skin color, texture, turgor normal; no rashes or lesions Neurologic: grossly normal, no focal deficits Elise Camarena M.D. Aug 08, 2017 15:33
[2017-08-08 16:00] VITALS: BP 157/66
--- NOTE | 2017-08-08 16:58 | Cardiology Progress Note ---
Assessment/Plan Assessment/Plan 1. Abnormal cardiac enzymes, not yet meeting criteria for myocardial infarction based on [employer]. 2. Sinus tachycardia, secondary to probable beta-agonist inhaler usage. 3. Asthma/emphysema with exacerbation. 4. History of hypertension. 5. Obesity. 6. Reported diarrhea. tele sinus rbbb echo normal wall motion ef 75% repeat trop ekg rbbb not changed since 06/2017 older previous older ekg cannot be pulled up to review no sx to suggest acs ecotrin statin for now hgb remain stable see me in 2 week i have given her my card she agreed Subjective Cardiovascular: Denies: chest pain, lightheadedness, palpitations, syncope Respiratory: Denies: shortness of breath Gastrointestinal/Abdominal: Denies: abdominal pain Genitourinary: Denies: burning Objective Last 24 Hour Vital Signs Date Time Temp Pulse Resp B/P (MAP) Pulse Ox O2 Delivery O2 Flow Rate FiO2 08/08/17 16:00 98.1 97 20 157/66 98 Room Air 98.1 08/08/17 13:25 Nasal Cannula 08/08/17 13:25 Nasal Cannula 08/08/17 12:00 97.5 97 18 116/54 96 Room Air 97.5 08/08/17 11:35 99 08/08/17 08:41 102 130/67 08/08/17 08:00 99.1 102 18 130/67 98 Room Air 99.1 08/08/17 07:48 105 08/08/17 07:41 97 Nasal Cannula 2.0 28 08/08/17 07:41 Nasal Cannula 2.0 28 08/08/17 07:40 91 22 97 Nasal Cannula 2.0 28 08/08/17 07:40 90 18 98 Nasal Cannula 2.0 28 08/08/17 04:00 97.8 84 18 139/78 97 Room Air 97.8 08/08/17 04:00 94 08/08/17 01:23 95 20 98 Nasal Cannula 2.0 28 08/08/17 01:13 107 22 97 Room Air 21 08/08/17 00:00 90 08/08/17 00:00 97.7 87 22 142/61 96 Room Air 97.7 08/07/17 21:02 91 145/65 08/07/17 20:04 94 20 99 Room Air 21 08/07/17 20:00 97.8 91 20 145/65 95 Room Air 97.8 08/07/17 20:00 101 08/07/17 19:54 87 22 97 Room Air 21 General Appearance: alert Neck: supple Cardiovascular: normal rate, regular rhythm Respiratory/Chest: lungs clear, normal breath sounds Abdomen: normal bowel sounds, non tender, soft Extremities: no swelling Intake and Output 08/07/17 08/08/17 19:00 07:00 Intake Total 600 ml Output Total 500 ml Balance 600 ml -500 ml Intake Oral 600 ml Output Urine Total 500 ml # Voids 4 # Bowel Movements 1 Laboratory Tests Test 08/08/17 07:05 Troponin I 0.077 ng/mL (0.000-0.056) ADRIÁN BROWN Aug 08, 2017 16:58
--- NOTE | 2017-08-08 21:33 | Consultation ---
History of Present Illness General Date patient seen: Aug 07, 2017 Chief Complaint: Dyspnea/Respdistress Reason for Consultation: dyspnea Present Illness HPI 82y/o female with pmh of asthma, HTN who presenst with SOB. Pt c/o shortness of breath, cough, runny nose, and chills, the pt has cognitive impairment and anxiety Allergies: Coded Allergies: CODEINE (Verified Allergy, Unknown, 05/11/17) Medication History Scheduled Aspirin* (Aspir 81*), 81 ORAL DAILY, (Reported) Fluticasone/Salmeterol (Advair 250-50 Diskus), 1 PUFFS INH BID Nifedipine Er* (Nifedipine Er*), 30 MG ORAL DAILY, (Reported) Scheduled PRN Albuterol Sulfate* (Albuterol Sulfate Hhn*), 3 ML INH Q4H PRN for Shortness of Breath, (Reported) Discontinued Medications Azithromycin* (Zithromax*), 250 MG ORAL DAILY Discontinued Reason: Therapy completed Methylprednisolone* (Medrol*), 4 MG ORAL DAILY Discontinued Reason: MD discontinued med Nifedipine (Nifedipine*), 30 MG ORAL BID, (Reported) Discontinued Reason: Medication dose changed Patient History Healthcare decision maker Resuscitation status Full Code Advanced Directive on File Physical Exam Last 24 Hour Vital Signs Date Time Temp Pulse Resp B/P (MAP) Pulse Ox O2 Delivery O2 Flow Rate FiO2 08/08/17 16:00 98.1 97 20 157/66 98 Room Air 98.1 08/08/17 15:09 108 08/08/17 13:25 Nasal Cannula 08/08/17 13:25 Nasal Cannula 08/08/17 12:00 97.5 97 18 116/54 96 Room Air 97.5 08/08/17 11:35 99 08/08/17 08:41 102 130/67 08/08/17 08:00 99.1 102 18 130/67 98 Room Air 99.1 08/08/17 07:48 105 08/08/17 07:41 97 Nasal Cannula 2.0 28 08/08/17 07:41 Nasal Cannula 2.0 28 08/08/17 07:40 91 22 97 Nasal Cannula 2.0 28 08/08/17 07:40 90 18 98 Nasal Cannula 2.0 28 08/08/17 04:00 97.8 84 18 139/78 97 Room Air 97.8 08/08/17 04:00 94 08/08/17 01:23 95 20 98 Nasal Cannula 2.0 28 08/08/17 01:13 107 22 97 Room Air 21 08/08/17 00:00 90 08/08/17 00:00 97.7 87 22 142/61 96 Room Air 97.7 Intake and Output 08/07/17 08/08/17 19:00 07:00 Intake Total 600 ml Output Total 500 ml Balance 600 ml -500 ml Intake Oral 600 ml Output Urine Total 500 ml # Voids 4 # Bowel Movements 1 Laboratory Tests Test 08/08/17 07:05 Troponin I 0.077 ng/mL (0.000-0.056) Height (Feet): 5 Height (Inches): 1.00 Weight (Pounds): 154 Assessment/Plan Assessment/Plan cognitive imapiment adolfo sylvester Pantea M.D. Aug 08, 2017 21:33
--- NOTE | 2017-08-08 21:34 | General Progress Note ---
Assessment/Plan Status: stable, progressing Subjective Date patient seen: Aug 08, 2017 Neurologic/Psychiatric: Reports: anxiety, emotional problems Allergies: Coded Allergies: CODEINE (Verified Allergy, Unknown, 05/11/17) Objective Last 24 Hour Vital Signs Date Time Temp Pulse Resp B/P (MAP) Pulse Ox O2 Delivery O2 Flow Rate FiO2 08/08/17 16:00 98.1 97 20 157/66 98 Room Air 98.1 08/08/17 15:09 108 08/08/17 13:25 Nasal Cannula 08/08/17 13:25 Nasal Cannula 08/08/17 12:00 97.5 97 18 116/54 96 Room Air 97.5 08/08/17 11:35 99 08/08/17 08:41 102 130/67 08/08/17 08:00 99.1 102 18 130/67 98 Room Air 99.1 08/08/17 07:48 105 08/08/17 07:41 97 Nasal Cannula 2.0 28 08/08/17 07:41 Nasal Cannula 2.0 28 08/08/17 07:40 91 22 97 Nasal Cannula 2.0 28 08/08/17 07:40 90 18 98 Nasal Cannula 2.0 28 08/08/17 04:00 97.8 84 18 139/78 97 Room Air 97.8 08/08/17 04:00 94 08/08/17 01:23 95 20 98 Nasal Cannula 2.0 28 08/08/17 01:13 107 22 97 Room Air 21 08/08/17 00:00 90 08/08/17 00:00 97.7 87 22 142/61 96 Room Air 97.7 Intake and Output 08/07/17 08/08/17 19:00 07:00 Intake Total 600 ml Output Total 500 ml Balance 600 ml -500 ml Intake Oral 600 ml Output Urine Total 500 ml # Voids 4 # Bowel Movements 1 Laboratory Tests 08/08/17 07:05: Troponin I 0.077H Height (Feet): 5 Height (Inches): 1.00 Weight (Pounds): 154 General Appearance: no apparent distress, alert Adia Walker M.D. Aug 08, 2017 21:34
--- NOTE | 2017-08-12 19:34 | Cardiology Report ---
APPROVED REPORT EKG Measurement Heart [id number] Sinus tachycardia Possible Left atrial enlargement Right bundle branch block Abnormal ECG
--- NOTE | 2017-08-15 18:06 | Discharge Summary ---
Discharge Summary Discharge Summary Discharge Summary DATE OF ADMISSION: 08/05/2017 DATE OF DISCHARGE: 08/08/2017 CONSULTANTS: 1. Dr. Stevie Navarro 2. Dr. Adia Walker BRIEF HOSPITAL COURSE: Patient is an 82-year-old female with medical history of asthma, and hypertension presented to ED complaining of shortness of breath, with cough, runny nose, and chills. She had been using inhaler at home without much improvement. She was previously admitted in April for similar complaints. She denied fever, chest pain, abdominal pain, nausea, vomiting, diarrhea, dysuria, and dizziness. In the field O2 saturation was 69% on room air. She was given nebulizer treatments with improvement of symptoms. On evaluation at ED she was given IV steroids and DuoNeb. She was started on IV azithromycin. She was noted to have elevated troponin 0.12. EKG with right bundle branch block, she was given aspirin. She underwent cardio consultation. Her EKG did not show any significant acute ST to T wave abnormalities. Echocardiogram showed normal wall motion and ejection fraction of 75%. Repeat troponins were negative. She was given aspirin. She was placed on Solu-Medrol and Advair. She was given trial of theophylline. Patient had cognitive impairment and anxiety, she was followed by psychiatrist. She was eventually cleared for discharge home no need to continue steroids. FINAL DIAGNOSES: 1. Acute respiratory failure with hypoxia 2. Asthma exacerbation 3. Upper respiratory infection 4. Elevated troponin with possible demand ischemia 5. Hypertension 6. Right bundle branch block 7. Sinus tachycardia secondary to beta agonist inhaler use 8. Obesity 9. Cognitive impairment 10. Anxiety disorder DISPOSITION: Patient was discharged home with home health. DISCHARGE MEDICATIONS: Refer to Discharge Medication List. DISCHARGE INSTRUCTIONS: Follow up with PCP in a week. I have been assigned to dictate discharge summary on this account, and I was not involved in the patient's management. Joi Willams NP Aug 15, 2017 18:06
== END 2017-08-08 17:33 | disposition home health service (06) | DRG 189 ==
LOC: EDBD 13:37 → EMR 16:20 → 2E 17:39 → EDBEDREQ 19:27
DX: J96.21 Acute and chronic respiratory failure with hypoxia (principal); J45.901 Unspecified asthma with (acute) exacerbation; I45.10 Unspecified right bundle-branch block; I10 Essential (primary) hypertension; Z88.6 Allergy status to analgesic agent; J06.9 Acute upper respiratory infection, unspecified; R74.8 Abnormal levels of other serum enzymes; E66.9 Obesity, unspecified; R00.0 Tachycardia, unspecified; T44.7X5A Adverse effect of beta-adrenoreceptor antagonists, initial encounter; G31.84 Mild cognitive impairment of uncertain or unknown etiology; F41.9 Anxiety disorder, unspecified
CPT/HCPCS: 36415; 36600; 71045; 80053; 82550; 82553; 82803; 83880; 84484; 85007; 85025; 90732; 93005; 93306; 94640; 94664; 94760; 99285; J7620

== ENCOUNTER 2017-08-16 21:17 | Emergency (ER) | payer OTHER, MEDICAID ==
[~2017-08-16] VITALS: Ht 162.6 cm; Wt 77.1 kg
[~2017-08-16 21:17] MED LIST changes: +ASPIR 8181 MG ORAL; +NIFEDIPINE ER30 MG ORAL
[2017-08-16 21:35] VITALS: BP 165/89
--- NOTE | 2017-08-16 21:36 | Emergency Room Report ---
History of Present Illness General Chief Complaint: Dyspnea/Respdistress Source: Patient, Medical Record, EMS Present Illness HPI This is an 82-year-old female with history of high blood pressure and asthma. She presents with chief complaint shortness of breath and wheezing. She was just here couple weeks ago. She was admitted for asthma exacerbation with hypoxia. She had a positive troponin with negative workup with echocardiogram. Ejection fraction was normal. There was no wall motion abnormality. She was doing well at home until tonight. She says she became short of breath and try to use her nebulizer machines but there were broken. Denies any fever or chills. Per EMS she was tight and wheezing but oxidation was 97% on room air. She was giving breathing treatment. She said she felt better. No chest pain. No nausea no vomiting. Worse with exertion. Better with rest and treatment. Allergies: Coded Allergies: CODEINE (Verified Allergy, Unknown, 05/11/17) Patient History Past Medical History: see triage record, old chart reviewed Past Surgical History: other Pertinent Family History: none Social History: Denies: smoking Now: No Immunizations: other Reviewed Nursing Documentation: PMH: Agreed; PSxH: Agreed Nursing Documentation-PMH Past Medical History: No History, Except For Hx Cardiac Problems: Yes Hx Hypertension: Yes Hx Asthma: Yes Hx Cancer: No Hx Gastrointestinal Problems: No Hx Neurological Problems: No Review of Systems Eye: Denies: eye pain, blurred vision ENT: Denies: ear pain, nose congestion, throat swelling Respiratory: Reports: shortness of breath; Denies: cough Cardiovascular: Denies: chest pain, palpitations Gastrointestinal: Denies: abdominal pain, diarrhea, nausea, vomiting Musculoskeletal: Denies: back pain, joint pain Skin: Denies: rash Neurological: Denies: headache, numbness Endocrine: Denies: increased thirst, increased urine Hematologic/Lymphatic: Denies: easy bruising All Other Systems: negative except mentioned in HPI Physical Exam Vital Signs Date Time Temp Pulse Resp B/P (MAP) Pulse Ox O2 Delivery O2 Flow Rate FiO2 08/16/17 21:14 98.5 99 20 165/89 97 Room Air 98.4 vitals with high blood pressure Sp02 EP Interpretation: reviewed, normal General Appearance: well appearing, no apparent distress, alert Head: normocephalic, atraumatic Eyes: bilateral eye PERRL, bilateral eye EOMI ENT: hearing grossly normal, normal pharynx Neck: full range of motion, supple, no meningismus Respiratory: chest non-tender, wheezing - faint wheezing, other - tachypneic Cardiovascular #1: regular rate, rhythm, no murmur Gastrointestinal: normal bowel sounds, non tender, no mass, no organomegaly, no bruit, non-distended Musculoskeletal: back normal, gait/station normal, normal range of motion Psychiatric: mood/affect normal Skin: warm/dry Medical Decision Making Diagnostic Impression: Primary Impression: Pulmonary embolism Qualified Codes: I26.99 - Other pulmonary embolism without acute cor pulmonale Additional Impression: Asthma exacerbation Qualified Codes: J45.21 - Mild intermittent asthma with (acute) exacerbation ER Course Patient present with shortness of breath and has a PE. Wheezing wasn't very significant. Did resolve with breathing treatment. She felt better now. Anticoagulation started with Lovenox. Patient will be admitted versus transfer based on her insurance. I discussed the case with Dr. Cronin at [facility]. Shakes over the patient for transfer under service of Dr. Devin Stein. Laboratory Tests Test 08/16/17 22:13 08/16/17 22:22 White Blood Count 9.4 K/UL (4.8-10.8) Red Blood Count 4.88 M/UL (4.20-5.40) Hemoglobin 14.5 G/DL (12.0-16.0) Hematocrit 42.8 % (37.0-47.0) Mean Corpuscular Volume 88 FL (80-99) Mean Corpuscular Hemoglobin 29.7 PG (27.0-31.0) Mean Corpuscular Hemoglobin Concent 33.9 G/DL (32.0-36.0) Red Cell Distribution Width 12.8 % (11.6-14.8) Platelet Count 224 K/UL (150-450) Mean Platelet Volume 9.8 FL (6.5-10.1) Neutrophils (%) (Auto) 67.0 % (45.0-75.0) Lymphocytes (%) (Auto) 23.1 % (20.0-45.0) Monocytes (%) (Auto) 8.7 % (1.0-10.0) Eosinophils (%) (Auto) 0.9 % (0.0-3.0) Basophils (%) (Auto) 0.3 % (0.0-2.0) D-Dimer 2.58 mg/L FEU (0.00-0.49) H Sodium Level 144 MMOL/L (136-145) Potassium Level 3.3 MMOL/L (3.5-5.1) L Chloride Level 108 MMOL/L (98-107) H Carbon Dioxide Level 30 MMOL/L (21-32) Anion Gap 6 mmol/L (5-15) Blood Urea Nitrogen 9 mg/dL (7-18) Creatinine 0.9 MG/DL (0.55-1.30) Estimat Glomerular Filtration Rate mL/min (>60) Glucose Level 136 MG/DL (74-106) H Calcium Level 8.7 MG/DL (8.5-10.1) Total Bilirubin 0.2 MG/DL (0.2-1.0) Aspartate Amino Transf (AST/SGOT) 23 U/L (15-37) Alanine Aminotransferase (ALT/SGPT) 32 U/L (12-78) Alkaline Phosphatase 124 U/L (46-116) H Total Creatine Kinase 40 U/L (26-308) Creatine Kinase MB 0.8 NG/ML (0.0-3.6) Creatine Kinase MB Relative Index 2.0 Troponin I 0.000 ng/mL (0.000-0.056) Pro-B-Type Natriuretic Peptide 123 pg/mL (0-125) Total Protein 6.6 G/DL (6.4-8.2) Albumin 3.1 G/DL (3.4-5.0) L Globulin 3.5 g/dL Albumin/Globulin Ratio 0.9 (1.0-2.7) L Urine Color Pale yellow Urine Appearance Clear Urine pH 6 (4.5-8.0) Urine Specific [place] 1.020 (1.005-1.035) Urine Protein 2+ (NEGATIVE) H Urine Glucose (UA) Negative (NEGATIVE) Urine Ketones Negative (NEGATIVE) Urine Occult Blood 4+ (NEGATIVE) H Urine Nitrite Negative (NEGATIVE) Urine Bilirubin Negative (NEGATIVE) Urine Urobilinogen Normal MG/DL (0.0-1.0) Urine Leukocyte Esterase 2+ (NEGATIVE) H Urine RBC 5-10 /HPF (0 - 2) H Urine WBC 5-10 /HPF (0 - 2) H Urine Squamous Epithelial Cells Occasional /LPF Urine Bacteria Occasional /HPF (NONE) Lab Results Impression labs unremarkable EKG Diagnostic Results Rate: normal Rhythm: NSR ST Segments: no acute changes - RBBB Rhythm Strip Diag. Results Rhythm Strip Time: 00:40 EP Interpretation: yes Rate: 88 Rhythm: NSR, no PVC's, no ectopy Chest X-Ray Diagnostic Results Chest X-Ray Diagnostic Results : Chest X-Ray Ordered: Yes # of Views/Limited/Complete: 1 View Indication: Shortness of Breath EP Interpretation: Yes Interpretation: no consolidation, no effusion, no pneumothorax, no acute cardiopulmonary disease Impression: No acute disease Electronically Signed by: Clari Galeano MD CT/MRI/US Diagnostic Results CT/MRI/US Diagnostic Results : Imaging Test Ordered: CT chest Impression Read by radiologist. pulmonary embolism in the right lower lobe Last Vital Signs Date Time Temp Pulse Resp B/P (MAP) Pulse Ox O2 Delivery O2 Flow Rate FiO2 08/16/17 21:14 98.5 99 20 165/89 97 Room Air 98.4 Status: improved Disposition: XFER T-[facility] Condition: Stable CLARI GALEANO M.D. Aug 16, 2017 21:36
[2017-08-16] MEDS ORDERED: Albuterol ud Inhalation HHN ONE (21:45)
[2017-08-16] MEDS ORDERED: Solu-MEDROL 125mg Inj IVP ONE (21:45)
[2017-08-16] MEDS ORDERED: Ipratropium 0.02% Inh Soln 2.5ml UD HHN ONE (21:45)
[2017-08-16 22:22] LABS: BASOPHILS % (AUTO) 0.3 % (0.0-2.0); EOSINOPHILS % (AUTO) 0.9 % (0.0-3.0); HEMATOCRIT 42.8 % (37.0-47.0); HEMOGLOBIN 14.5 G/DL (12.0-16.0); LYMPHOCYTES % (AUTO) 23.1 % (20.0-45.0); MEAN CORPUSCULAR VOLUME 88 FL (80-99); MONOCYTES % (AUTO) 8.7 % (1.0-10.0); PLATELET COUNT 224 K/UL (150-450); RED BLOOD COUNT 4.88 M/UL (4.20-5.40); RED CELL DISTRIBUTION WIDTH 12.8 % (11.6-14.8); WHITE BLOOD COUNT 9.4 K/UL (4.8-10.8)
[2017-08-16 22:27] LABS: APPEARANCE,URINE CLEAR; BILIRUBIN, URINE NEGATIVE (NEGATIVE); COLOR,URINE PALE YELLOW; GLUCOSE, URINE (UA) NEGATIVE (NEGATIVE); KETONES,URINE NEGATIVE (NEGATIVE); LEUKOCYTE ESTERASE ,URINE 2+ (NEGATIVE); NITRITE,URINE NEGATIVE (NEGATIVE); PH,URINE 6 (4.5-8.0); PROTEIN,URINE 2+ (NEGATIVE); UROBILINOGEN,URINE NORMAL MG/DL (0.0-1.0)
[2017-08-16 22:35] LABS: ANION GAP 6 mmol/L (5-15); BLOOD UREA NITROGEN 9 mg/dL (7-18); CALCIUM 8.7 MG/DL (8.5-10.1); CARBON DIOXIDE 30 MMOL/L (21-32); CHLORIDE 108 MMOL/L (98-107); CREATININE 0.9 MG/DL (0.55-1.30); POTASSIUM 3.3 MMOL/L (3.5-5.1); SODIUM 144 MMOL/L (136-145)
[2017-08-16] MEDS ORDERED: cefTRIAXone 1 GM in NS 55 ML IVPB ONE (22:45)
[2017-08-16 22:50] LABS: ALANINE AMINOTRANSFERASE 32 U/L (12-78); ALBUMIN 3.1 G/DL (3.4-5.0); ALBUMIN/GLOBULIN RATIO 0.9 (1.0-2.7); ALKALINE PHOSPHATASE 124 U/L (46-116); ASPARTATE AMINO TRANSFERASE 23 U/L (15-37); BILIRUBIN,TOTAL 0.2 MG/DL (0.2-1.0); CKMB 0.8 NG/ML (0.0-3.6); CREATINE KINASE 40 U/L (26-308)
[2017-08-16 23:30] VITALS: BP 136/84
[2017-08-17] MEDS ORDERED: Enoxaparin 100mg Inj SUBQ ONE
[2017-08-17 01:00] VITALS: BP 136/57
[2017-08-17 02:30] VITALS: BP 115/48
[2017-08-17 03:45] VITALS: BP 123/63
[2017-08-17 04:00] VITALS: BP 123/63
--- NOTE | 2017-08-17 08:42 | Diagnostic Imaging Report ---
Indication: Reason For Exam: Shortness of breath Technique: CT angiography performed utilizing thin section spiral CT and bolus contrast injection. Axial, coronal, and sagittal images were generated. Maximum intensity projections (MIPs) were obtained in the coronal and sagittal planes. Dose: Total Dose Length Product - DLP [address] Dose Index - CTDIvol(s) 12.6, 25.25, 18.92 mGy. Automated exposure control was utilized for dose reduction. Findings: Mediastinum is unremarkable. There is no evidence of mediastinal adenopathy. Calcification is noted in the aorta. There is no evidence of aortic dissection. The heart appears enlarged. There is a single occluded pulmonary branch to the superior segment of the right lower lobe. No other pulmonary emboli are identified. There is no evidence of pleural fluid. A 3 mm nodular density is noted in the right upper lobe laterally. There is some linear density in the lingula. The lungs are otherwise unremarkable. Mild degenerative changes noted in the spine. Impression: Tiny embolus to a second order branch in the superior segment of the right lower lobe. No other pulmonary emboli. Atherosclerotic change. Minimal atelectasis or scarring in the lingula. Tiny 3 mm nodule in the right upper lobe laterally. If the patient is low risk, no further follow-up is necessary. The above report is concordant with preliminary reading by [facility] with minor difference. The CT scanner at [facility] is accredited by the [employer] and the scans are performed using protocols designed to limit radiation exposure to as low as reasonably achievable to attain images of sufficient resolution adequate for diagnostic evaluation.
--- NOTE | 2017-08-17 09:14 | Diagnostic Imaging Report ---
Indication: Reason For Exam: SOB Technique: XRAY Chest 1v. Comparison: 08/06/2017 Findings: The cardiomediastinal silhouette is stable. There are no acute infiltrates. There is scarring in the left midlung. No pleural fluid. The aorta is calcified. Impression: No acute abnormality. No change from prior exam. .
--- NOTE | 2017-08-17 18:07 | Cardiology Report ---
APPROVED REPORT EKG Measurement Heart [id number] Normal sinus rhythm Possible Left atrial enlargement Right bundle branch block Abnormal ECG
== END 2017-08-17 04:00 | disposition short-term general hospital (02) ==
LOC: EDBD 21:17 → EMR 22:00
DX: I26.99 Other pulmonary embolism without acute cor pulmonale (principal); J45.901 Unspecified asthma with (acute) exacerbation; I10 Essential (primary) hypertension; Z88.5 Allergy status to narcotic agent
CPT/HCPCS: 36415; 71045; 71275; 80053; 81003; 82550; 82553; 83880; 84484; 85025; 85379; 93005; 94640; 94664; 96372; 96374; 96375; 99285